=== PATIENT | female | born 1950 | race African-American/Black ===

== ENCOUNTER 2025-07-24 14:50 | Outpatient (AMB) | payer MEDICARE, OTHER, SELFPAY ==
--- OUTSIDE RECORDS SUMMARY | 2024-12-10 09:00 | XMS_ITS ---
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 Name Role Phone Linda Vogel Unavailable [phone] REASON FOR VISIT labs Medications Medication SIG (Take, Route, Frequency, Duration) Notes Start Date End Date Status Lisinopril 40 MG Tablet TAKE 1 TABLET BY MOUTH EVERY DAY; Duration: 90 Active Hydrocortisone 2.5 % Cream 1 APPLICATION EXTERNALLY TWICE A DAY 30 DAYS; Duration: 30 Active Albuterol Sulfate HFA 108 (90 Base) MCG/ACT Aerosol Solution INHALE 1 PUFF INTO THE LUNGS EVERY 4 HOURS FOR 30 DAYS; Duration: 30 Active Multi For Her 50+ - Tablet as directed Orally Active oxyCODONE-Acetaminophen 5-325 MG Tablet 1 tablet as needed Orally every 6 hrs; Duration: 30 days 11/18/2024 Active Vitamin D 50 MCG (2000 UT) Tablet TAKE 1 TABLET BY MOUTH EVERY DAY; Duration: 90 Active Docusate Sodium 100 MG Capsule 1 capsule Orally twice a day; Duration: 90 days 06/01/2022 Active Digoxin 125 MCG Tablet TAKE 1 TABLET BY MOUTH EVERY DAY; Duration: 90 Active Pantoprazole Sodium 40 MG Tablet Delayed Release TAKE 1 TABLET BY MOUTH EVERY DAY FOR 90 DAYS; Duration: 90 Not-Taking Atorvastatin Calcium 20 MG Tablet TAKE 1 TABLET BY MOUTH EVERY DAY; Duration: 90 Active Montelukast Sodium 10 MG Tablet TAKE 1 TABLET BY MOUTH EVERY DAY FOR 30 DAYS; Duration: 90 Active Warfarin Sodium 4 MG Tablet TAKE 1 TABLET BY MOUTH EVERY DAY; Duration: 90 Active Metoprolol Succinate ER 50 MG Tablet Extended Release 24 Hour 1 tablet Orally Once a day; Duration: 90 days Active Torsemide 20 MG Tablet TAKE 1 TABLET BY MOUTH TWICE A DAY FOR 90 DAYS; Duration: 90 Active Allopurinol 100 MG Tablet TAKE 2 TABLETS BY MOUTH ONCE DAILY; Duration: 90 Active Colchicine 0.6 MG Tablet 1 tablet Orally Twice a day; Duration: 30 days as needed 04/30/2023 Active Fluticasone Propionate 50 MCG/ACT Suspension SPRAY 2 SPRAYS INTO EACH NOSTRIL ONCE A DAY; Duration: 90 Active levETIRAcetam 1000 MG Tablet TAKE 1 TABLET BY MOUTH TWICE A DAY; Duration: 90 Active Encounters Encounter Location Date Provider Diagnosis [facility] [address] [place] [phone] 12/10/2024 Linda Lela Plan Of Treatment Next Appt Details Provider Name:Linda Lela, 0 09/02/2025 01:00:00 PM, [address] [place] [address], [phone], Provider Name:Linda Lela, 0 02/24/2026 01:00:00 PM, [address] [place] [address], [phone], Progress Notes * JESSICA LALDOB: [birth year] (75 yo F)Acc No.[id number]:12/10/2024 Progress Note Patient: JESSICA BOWMAN Provider: Susan Vogel PA-C :1950 A ge:74 Y S ex:Female Date:12/10/2024 Address:[address] [place], [place] [id number] Subjective: * Chief Complaints: * L abs * Medications: Sharon Senia For Her 50+ - Tablet as directed Orally Albuterol Sulfate HFA 108 (90 Base) MCG/ACT Aerosol Solution INHALE 1 PUFF INTO THE LUNGS EVERY 4 HOURS FOR 30 DAYS levETIRAcetam 1000 MG Tablet TAKE 1 TABLET BY MOUTH TWICE A DAY Fluticasone Propionate 50 MCG/ACT Suspension SPRAY 2 SPRAYS INTO EACH NOSTRIL ONCE A DAY Colchicine 0.6 MG Tablet 1 tablet Orally Twice a day , Notes to Pharmacist: as neededMontelukast Sodium 10 MG Tablet TAKE 1 TABLET BY MOUTH EVERY DAY FOR 30 DAYS Allopurinol 100 MG Tablet TAKE 2 TABLETS BY MOUTH ONCE DAILY Torsemide 20 MG Tablet TAKE 1 TABLET BY MOUTH TWICE A DAY FOR 90 DAYS Metoprolol Succinate ER 50 MG Tablet Extended Release 24 Hour 1 tablet Orally Once a day Warfarin Sodium 4 MG Tablet TAKE 1 TABLET BY MOUTH EVERY DAY Atorvastatin Calcium 20 MG Tablet TAKE 1 TABLET BY MOUTH EVERY DAY Digoxin 125 MCG Tablet TAKE 1 TABLET BY MOUTH EVERY DAY Docusate Sodium 100 MG Capsule 1 capsule Orally twice a day Vitamin D 50 MCG (1999 UT) Tablet TAKE 1 TABLET BY MOUTH EVERY DAY Hydrocortisone 2.5 % Cream 1 APPLICATION EXTERNALLY TWICE A DAY 30 DAYS Lisinopril 40 MG Tablet TAKE 1 TABLET BY MOUTH EVERY DAY oxyCODONE-Acetaminophen 5-325 MG Tablet 1 tablet as needed Orally every 6 hrs Taking Multi For Her 50+ - Tablet as directed Orally Taking Albuterol Sulfate HFA 108 (90 Base) MCG/ACT Aerosol Solution INHALE 1 PUFF INTO THE LUNGS EVERY 4 HOURS FOR 30 DAYS Taking levETIRAcetam 1000 MG Tablet TAKE 1 TABLET BY MOUTH TWICE A DAY Taking Fluticasone Propionate 50 MCG/ACT Suspension SPRAY 2 SPRAYS INTO EACH NOSTRIL ONCE A DAY Taking Colchicine 0.6 MG Tablet 1 tablet Orally Twice a day , Notes to Pharmacist: as neededTaking Montelukast Sodium 10 MG Tablet TAKE 1 TABLET BY MOUTH EVERY DAY FOR 30 DAYS Taking Allopurinol 100 MG Tablet TAKE 2 TABLETS BY MOUTH ONCE DAILY Taking Torsemide 20 MG Tablet TAKE 1 TABLET BY MOUTH TWICE A DAY FOR 90 DAYS Taking Metoprolol Succinate ER 50 MG Tablet Extended Release 24 Hour 1 tablet Orally Once a day Taking Warfarin Sodium 4 MG Tablet TAKE 1 TABLET BY MOUTH EVERY DAY Taking Atorvastatin Calcium 20 MG Tablet TAKE 1 TABLET BY MOUTH EVERY DAY Taking Digoxin 125 MCG Tablet TAKE 1 TABLET BY MOUTH EVERY DAY Taking Docusate Sodium 100 MG Capsule 1 capsule Orally twice a day Taking Vitamin D 50 MCG (1999 UT) Tablet TAKE 1 TABLET BY MOUTH EVERY DAY Taking Hydrocortisone 2.5 % Cream 1 APPLICATION EXTERNALLY TWICE A DAY 30 DAYS Taking Lisinopril 40 MG Tablet TAKE 1 TABLET BY MOUTH EVERY DAY Taking oxyCODONE-Acetaminophen 5-325 MG Tablet 1 tablet as needed Orally every 6 hrs Not-TakingPantoprazole Sodium 40 MG Tablet Delayed Release TAKE 1 TABLET BY MOUTH EVERY DAY FOR 90 DAYS Not-Taking Pantoprazole Sodium 40 MG Tablet Delayed Release TAKE 1 TABLET BY MOUTH EVERY DAY FOR 90 DAYS Care Plan Details* * Electronic signature of Linda Vogel PA-C on 07/24/2025 at 02:53 PM EST Sign off status: Pending * Provider: Susan Vogel PA-C Date: 0 12/10/2024 Generated for Rochelle lyons/Dante/Dario on: 1 09/24/2024 02:53 PM EST
--- OUTSIDE RECORDS SUMMARY | 2025-01-06 05:15 | XMS_ITS ---
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 Role Phone Linda Vogel Unavailable [phone] Medications Medication SIG (Take, Route, Frequency, Duration) Notes Start Date End Date Status Lisinopril 40 MG Tablet TAKE 1 TABLET BY MOUTH EVERY DAY; Duration: 90 Active oxyCODONE-Acetaminophe n 5-325 MG Tablet 1 tablet as needed Orally every 6 hrs; Duration: 30 days Partial Fill upon Patient Request 12/18/2024 Active Digoxin 125 MCG Tablet TAKE 1 TABLET BY MOUTH EVERY DAY; Duration: 90 Active Vitamin D 50 MCG (1999) Tablet TAKE 1 TABLET BY MOUTH EVERY DAY; Duration: 90 Active Hydrocortisone 2.5 % Cream 1 APPLICATION EXTERNALLY TWICE A DAY 30 DAYS; Duration: 30 Active Metoprolol Succinate ER 50 MG Tablet Extended Release 24 Hour 1 tablet Orally Once a day; Duration: 90 days Active Warfarin Sodium 4 MG Tablet TAKE 1 TABLET BY MOUTH EVERY DAY; Duration: 90 Active Atorvastatin Calcium 20 MG Tablet TAKE 1 TABLET BY MOUTH EVERY DAY; Duration: 90 Active Pantoprazole Sodium 40 MG Tablet Delayed Release TAKE 1 TABLET BY MOUTH EVERY DAY FOR 90 DAYS; Duration: 90 Not-Taking Docusate Sodium 100 MG Capsule 1 capsule Orally twice a day; Duration: 90 days 06/01/2022 Active Torsemide 20 MG Tablet TAKE 1 TABLET BY MOUTH TWICE A DAY FOR 90 DAYS; Duration: 90 Active Allopurinol 100 MG Tablet TAKE 2 TABLETS BY MOUTH ONCE DAILY; Duration: 90 Active Colchicine 0.6 MG Tablet 1 tablet Orally Twice a day; Duration: 30 days as needed 04/30/2023 Active Montelukast Sodium 10 MG Tablet TAKE 1 TABLET BY MOUTH EVERY DAY FOR 30 DAYS; Duration: 90 Active Fluticasone Propionate 50 MCG/ACT Suspension SPRAY 2 SPRAYS INTO EACH NOSTRIL ONCE A DAY; Duration: 90 Active Multi For Her 50+ - Tablet as directed Orally Active Albuterol Sulfate HFA 108 (90 Base) MCG/ACT Aerosol Solution INHALE 1 PUFF INTO THE LUNGS EVERY 4 HOURS FOR 30 DAYS; Duration: 30 Active levETIRAcetam 1000 MG Tablet TAKE 1 TABLET BY MOUTH TWICE A DAY; Duration: 90 Active Encounters Encounter Location Date Provider Diagnosis [facility] [address] [phone] 01/06/2025 Linda Lela Plan Of Treatment Next Appt Details Provider Name:Linda Lela, 0 09/02/2025 01:00:00 PM, [address] [place] [address], [phone], Provider Name:Linda Lela, 0 02/24/2026 01:00:00 PM, [address] [place] [address], [phone], Progress Notes * JESSICA LALDOB: [birth year] (75 yo F)Acc No.[id number]:01/06/2025 Progress Note Patient: JESSICA BOWMAN Provider: Susan Vogel PA-C :1950 A ge:74 Y S ex:Female Date:01/06/2025 Address:[address] [place], [place] [id number] Subjective: * Chief Complaints: * Medications: T akingMulti For Her 50+ - Tablet as directed [...] tablet as needed Orally every 6 hrs , Notes to Pharmacist: Partial Fill upon Patient RequestDigoxin 125 MCG Tablet TAKE 1 TABLET BY MOUTH EVERY DAY Taking Multi For Her 50+ - Tablet [...] tablet as needed Orally every 6 hrs , Notes to Pharmacist: Partial Fill upon Patient RequestTaking Digoxin 125 MCG Tablet TAKE 1 TABLET BY MOUTH EVERY DAY Not-TakingPantoprazole Sodium 40 MG Tablet Delayed Release TAKE 1 TABLET BY MOUTH EVERY DAY FOR 90 DAYS Not-Taking Pantoprazole Sodium 40 MG Tablet Delayed Release TAKE 1 TABLET BY MOUTH EVERY DAY FOR 90 DAYS Care Plan Details* * Electronic signature of Linda Vogel PA-C on 07/24/2025 at 02:53 PM EST Sign off status: Pending * Provider: Susan Vogel PA-C Date: 0 01/06/2025 Generated for Rochelle lyons/Dante/Dario on: 1 09/24/2024 02:53 PM EST
[2025-07-24 14:48] VITALS: BP 139/100; PULSE 72; O2SAT 91; BMI 32.7
--- NOTE | 2025-07-24 14:48 | HO.NEPHOV_ITS ---
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 She is 75 of age who has longstanding hypertension and is on multiple anti hypertensive medications including ACEI. She has H/O DM but denies CAD, CHF, PAD or TOM. She is not on any oral hypoglycemic agents. She has H/O MVR and is on warfarin. She has no H/O hypercalcemia, bone pain, H/O excessive NSAID's, epistaxis, photosensitvity, SOB, PND, orthopnea or edema. She denies any orthostatic symptoms. Her serum creatinine has gone up from baseline. She did not have any specific complaints at the time of this office visit. [facility] Medical History (Updated 07/25/25 @ 12:16 by Jose Guadalupe Fontenot MD) Atrial fibrillation Arthritis Osteoporosis Obesity Hypertension Diabetes mellitus Depression Congestive heart failure Surgical History H/O brain surgery History of colonoscopy H/O mitral valve replacement Family History Son Lung cancer Paternal Grandmother Diabetes mellitus Review of Systems Const All systems reviewed & are unremarkable except as noted in HPI and below Physical Exam Vital Signs: Last Vital Signs Pulse 72 07/24/25 14:48 BP 139/100 H 07/24/25 14:48 Pulse Ox 91 L 07/24/25 14:48 Oxygen Delivery Method Room Air 07/24/25 14:48 BMI result Body Mass Index 32.7 Const General: comfortable and no acute distress Orientation/consciousness: patient oriented x3 HEENT Head: Yes normocephalic Mouth: Normal oral and palatal mucosa present Eyes EOM: EOMs intact bilaterally Neck Neck: Yes supple Resp Auscultation: clear to auscultation bilaterally Cardio Jugular venous distension: no JVD Rate: regular rate Heart sounds: Murmur heart sound present GI Palpation (GI): Soft to palpation Auscultation: normal bowel sounds General: Yes no CVA tenderness Back/Spine/Pelvis Back: no CVA tenderness Skin General skin exam: no rashes or lesions noted Neuro General: patient oriented x3 and moves all extremities Extrem General: Yes no pedal edema Assessment & Plan Assessment & Plan (1) Hypertension: Code(s): I10 - Essential (primary) hypertension Category: Medical Qualifiers: Hypertension type: primary hypertension Qualified Code(s): I10 - Essential (primary) hypertension (2) CKD stage 3a, GFR 45-59 ml/min: Code(s): N18.31 - Chronic kidney disease, stage 3a Category: Medical Plan Ms Nieves has CKD at baseline most likely from long standing hypertension. Her renal functions had been fairly stable until this year when her serum creatinine started going up but stable now. She may be having elvi vascular disease. I plan to get Doppler of renal arteries after reviewing the initial work up. She should maintain good hydration and minimize NSAID's. I am considering backing off on ACEI dosage to see whether her serum creatinine will improve. All these have been explained in detail. Answered all questions and F/U was given Orders: Orders Proteinase 3 PR3 Antibodies 3 Weeks I10 - Essential (primary) hypertension, N18.31 - Chronic kidney disease, stage 3a Complement C3 3 Weeks I10 - Essential (primary) hypertension, N18.31 - Chronic kidney disease, stage 3a Immunofixation Pnl, Serum 3 Weeks I10 - Essential (primary) hypertension, N18.31 - Chronic kidney disease, stage 3a Hepatitis B Core Antibody 3 Weeks I10 - Essential (primary) hypertension, N18.31 - Chronic kidney disease, stage 3a Electrolytes 3 Weeks I10 - Essential (primary) hypertension, N18.31 - Chronic kidney disease, stage 3a Calcium 3 Weeks I10 - Essential (primary) hypertension, N18.31 - Chronic kidney disease, stage 3a Creatinine 3 Weeks I10 - Essential (primary) hypertension, N18.31 - Chronic kidney disease, stage 3a Protein Creatinine Ratio, Ur 3 Weeks I10 - Essential (primary) hypertension, N18.31 - Chronic kidney disease, stage 3a Immunofixation, Random Urine 3 Weeks I10 - Essential (primary) hypertension, N18.31 - Chronic kidney disease, stage 3a Hemoglobin A1c 3 Weeks I10 - Essential (primary) hypertension, N18.31 - Chronic kidney disease, stage 3a Anti DNA DS Antibody 3 Weeks I10 - Essential (primary) hypertension, N18.31 - Chronic kidney disease, stage 3a Myeloperoxidase Antibody 3 Weeks I10 - Essential (primary) hypertension, N18.31 - Chronic kidney disease, stage 3a Anti Glomerular Basement Memb 3 Weeks I10 - Essential (primary) hypertension, N18.31 - Chronic kidney disease, stage 3a Complement C4 3 Weeks I10 - Essential (primary) hypertension, N18.31 - Chronic kidney disease, stage 3a Phospholipase A2 Receptor Pnl 3 Weeks I10 - Essential (primary) hypertension, N18.31 - Chronic kidney disease, stage 3a Hepatitis B Surface Antigen 3 Weeks I10 - Essential (primary) hypertension, N18.31 - Chronic kidney disease, stage 3a Blood Urea Nitrogen 3 Weeks I10 - Essential (primary) hypertension, N18.31 - Chronic kidney disease, stage 3a Uric Acid 3 Weeks I10 - Essential (primary) hypertension, N18.31 - Chronic kidney disease, stage 3a Coding Level of Care Code Est Pt Level 4 (59606) Diagnoses Primary hypertension I10 Hypertension type: primary hypertension CKD stage 3a, GFR 45-59 ml/min N18.
--- OUTSIDE RECORDS SUMMARY | 2025-07-24 14:53 | XMS_ITS ---
Author Name [facility] Organization Unknown Encounters Encounter Type Encounter Reason Primary Diagnosis Location Date Ambulatory [facility] 05/27/2024 Care Team Organization Name Specialty Phone Email Start Date End [facility]24 [facility] 12/04/2022
--- OUTSIDE RECORDS SUMMARY | 2025-07-24 14:53 | XMS_ITS | Patient Health Record ---
Author Organization [facility] [address] Address [address] [place] [address] Care Team Providers Care [employer] Manager Name Role Phone Linda Vogel Unavailable [phone] TERESA MARTIN Unavailable [phone] JOSE ANGELISAIAS WILKERSON Unavailable [phone] [place], [place] Unavailable [phone] Allergies Allergen (clinical drug ingredient) Drug/Non Drug Allergy documented on EMR Reaction Allergy Type Onset Date Status amlodipine Amlodipine Besylate Unknown Drug Allergy Active amoxicillin / clavulanate Augmentin Unknown Drug Allergy Active hydrochlorothiazide Hydrochlorothiazide Unknown Drug Aller gy Active Results Component Value Reference Range Flag Notes VITAMIN B12 Reviewed date:04/07/2025 08:00:36 AM Interpretation: Performing Lab: Notes/Report: Vitamin B-12 509 250-900 pcg/mL THYROID STIMULATING HORMONE WITH REFLEX TO FREE T4 AND FREE T3 Reviewed date:04/07/2025 08:00:47 AM Interpretation: Performing Lab: Notes/Report: TSH 2.80 0.40-4.00 mcIU/mL URINALYSIS WITH REFLEX MICRO SCOPIC AND CULTURE Reviewed date:04/08/2025 01:15:41 PM Interpretation: Performing Lab: Notes/Report: Specific [place] Urine 1.020 1.003-1.030 pH, Urine 6.0 5.0-8.0 pH Leukocytes, Urine Negative Negative Nitrite, Urine Negative Negative Protein, Urine 100 <=Trace mg/dL A Glucose, Urine Negative Negative mg/dL Ketones, Urine Negative Negative mg/dL Urobilinogen, Urine 0.2 0.2-1.0 mg/dL Bilirubin, Urine Negative Negative Blood, Urine Negative Negative RBC, Urine 3.2 0-4 /HPF WBC, Urine 10.0 0-4 /HPF H Squamous Epithelial, Urine >100 0-60 /LPF H Bacteria, Urine Few Negative /HPF A Hyaline Casts, Urine 2.0 0-3 /LPF PROTHROMBIN TIME WITH INR Reviewed date:04/06/2025 04:10:19 PM Interpretation: Performing Lab: Notes/Report: Protime 64.3 10.6-13.9 sec H INR 5.3 HH URINALYSIS WITH REFLEX MICRO SCOPIC Reviewed date:05/21/2025 04:12:19 PM Interpretation: Performing Lab: Notes/Report: Specific [place] Urine 1.012 1.003-1.030 pH, Urine 7.0 5.0-8.0 pH Leukocytes, Urine Negative Negative Nitrite, Urine Negative Negative Protein, Urine 300 <=Trace mg/dL A Glucose, Urine Negative Negative mg/dL Ketones, Urine Negative Negative mg/dL Urobilinogen, Urine 1.0 0.2-1.0 mg/dL Bilirubin, Urine Negative Negative Blood, Urine Negative Negative RBC, Urine 6.1 0-4 /HPF H WBC, Urine 2.5 0-4 /HPF Squamous Epithelial, Urine 91 0-60 /LPF H Bacteria, Urine Negative Negative /HPF Hyaline Casts, Urine 0.4 0-3 /LPF CBC WITH AUTO DIFFERENTIAL Reviewed date:05/27/2025 10:10:28 PM Interpretation: Performing Lab: Notes/Report: WBC 4.4 4.8-10.8 K/mcL L RBC 4.70 3.80-4.80 M/mcL Hemoglobin 12.3 11.5-16.0 g/dL Hematocrit 41.4 35.0-47.0 % MCV 88.3 79.0-98.0 FL MCH 26.2 27.0-32.0 pcg L MCHC 29.7 32.0-37.0 g/dL L RDW 13.7 11.0-15.0 % Platelets 100 130-400 K/mcL L MPV 11.8 7.0-11.0 FL H NRBC 0.0 <1.0 % NRBC Absolute 0.00 <0.10 K/mcL Neutrophils Relative 61.0 Lymphocytes Relative 19.5 Monocytes Relative 17.2 Eosinophils Relative 0.9 Basophils Relative 0.9 Immature Granulocytes Relative 0.5 Neutrophils Absolute 2.65 1.50-7.00 K/mcL Lymphocytes Absolute 0.85 1.00-5.00 K/mcL L Monocytes Absolute 0.75 0.20-1.00 K/mcL Eosinophils Absolute 0.04 0.00-0.50 K/mcL Basophils Absolute 0.04 0.00-0.20 K/mcL Immature Granulocytes Absolute 0.02 0.00-0.03 K/mcL URIC ACID Reviewed date:05/21/2025 07:44:04 AM Interpretation: Performing Lab: Notes/Report: Uric Acid 10.5 3.1-7.8 mg/dL H URIC ACID Reviewed date:04/08/2025 01:15:32 PM Interpretation: Performing Lab: Notes/Report: Uric Acid 10.2 3.1-7.8 mg/dL H HEMOGLOBIN A1C Reviewed date:04/06/2025 04:10:04 PM Interpretation: Performing Lab: Notes/Report: Hemoglobin A1C 6.1 <6.5 % Mean Bld Glu Estim. 128 PROTHROMBIN TIME WITH INR Reviewed date:04/22/2025 08:09:35 AM Interpretation: Performing Lab: Notes/Report: Protime 38.0 10.6-13.9 sec H INR 3.1 PROTHROMBIN TIME WITH INR Reviewed date:05/21/2025 04:29:52 PM Interpretation: Performing Lab: Notes/Report: Protime 38.1 10.6-13.9 sec H INR 3.1 COMPREHENSIVE METABOLIC PANE L Reviewed date:05/27/2025 10:10:22 PM Interpretation: Performing Lab: Notes/Report: Sodium 138 133-145 mmol/L Potassium 4.3 3.5-5.5 mmol/L Chloride 98 96-110 mmol/L CO2 32 21-32 mmol/L Anion Gap 8 3-11 Glucose 69 70-100 mg/dL L BUN 18 5-25 mg/dL Creatinine 1.62 0.50-1.10 mg/dL H eGFR 34 >=60 mL/min/1.73m2 L Calcul ation based on the Chronic Kidney Disease Epidemiology Collaboration (CKD-EPI) equation refit without adjustment for race. BUN/Creatinine Ratio 11.1 Calcium 9.1 8.5-10.5 mg/dL AST (SGOT) 40 10-42 unit/L ALT (SGPT) 21 10-60 unit/L Alkaline Phosphatase 142 42-121 unit/L H Total Protein 8.1 6.0-8.0 g/dL H Albumin 3.8 3.2-5.0 g/dL Total Bilirubin 1.8 0.0-1.4 mg/dL H COMPREHENSIVE METABOLIC PANE L Reviewed date:04/08/2025 01:15:22 PM Interpretation: Performing Lab: Notes/Report: Sodium 136 133-145 mmol/L Potassium 4.4 3.5-5.5 mmol/L Chloride 99 96-110 mmol/L CO2 33 21-32 mmol/L H Anion Gap 4 3-11 Glucose 89 70-100 mg/dL BUN 17 5-25 mg/dL Creatinine 1.64 0.50-1.10 mg/dL H eGFR 33 >=60 mL/min/1.73m2 L Calcul ation based on the Chronic Kidney Disease Epidemiology Collaboration (CKD-EPI) equation refit without adjustment for race. BUN/Creatinine Ratio 10.4 Calcium 8.7 8.5-10.5 mg/dL AST (SGOT) 39 10-42 unit/L ALT (SGPT) 18 10-60 unit/L Alkaline Phosphatase 141 42-121 unit/L H Total Protein 7.6 6.0-8.0 g/dL Albumin 3.5 3.2-5.0 g/dL Total Bilirubin 1.1 0.0-1.4 mg/dL LIPID PANEL WITH REFLEX TO D IRECT LDL Reviewed date:04/08/2025 01:10:40 PM Interpretation: Performing Lab: Notes/Report: Cholesterol 84 0-200 mg/dL Triglycerides 83 0-150 mg/dL HDL 38 >=40 mg/dL L LDL Calculated 29 0-100 mg/dL Estimated LDL Calculated using equation: Total cholesterol - HDL cholesterol - (Triglycerides/5) VLDL Cholesterol Brien 16.6 Non HDL Chol. (LDL+VLDL) 46 <145 mg/dL Chol/HDL Ratio 2.2 0.0-4.4 CBC WITH AUTO DIFFERENTIAL Reviewed date:04/08/2025 01:15:50 PM Interpretation: Performing Lab: Notes/Report: WBC 3.5 4.8-10.8 K/mcL L RBC 4.50 3.80-4.80 M/mcL Hemoglobin 12.0 11.5-16.0 g/dL Hematocrit 40.7 35.0-47.0 % MCV 89.8 79.0-98.0 FL MCH 26.5 27.0-32.0 pcg L MCHC 29.5 32.0-37.0 g/dL L RDW 13.9 11.0-15.0 % Platelets 113 130-400 K/mcL L MPV 9.8 7.0-11.0 FL NRBC 0.0 <1.0 % NRBC Absolute 0.00 <0.10 K/mcL Neutrophils Relative 57.5 Lymphocytes Relative 23.6 Monocytes Relative 15.4 Eosinophils Relative 2.3 Basophils Relative 0.9 Immature Granulocytes Relative 0.3 Neutrophils Absolute 2.02 1.50-7.00 K/mcL Lymphocytes Absolute 0.83 1.00-5.00 K/mcL L Monocytes Absolute 0.54 0.20-1.00 K/mcL Eosinophils Absolute 0.08 0.00-0.50 K/mcL Basophils Absolute 0.03 0.00-0.20 K/mcL Immature Granulocytes Absolute 0.01 0.00-0.03 K/mcL Reason For Referral Reason [facility] Neurology Diagnosis 1 History of subdural hematoma (Z86.79) Diagnosis 2 History of seizures (Z87.898) Referral Organization [facility] [address] Referring Provider First Name Linda Referring Provider Last Name [facility] Referring Provider [facility] Referred Provider Specialty Neurology General Notes Angela Rush 02:11:12 PM > Pt given referral faxed to Referral Priority Routine Reason Low platelet count. Diagnosis 1 Thrombocytopenia (D6 9.6) Referral Organization [facility] [address] Referring Provider First Name Linda Referring Provider Last Name [facility] Referring Provider [facility] edicine Referred Provider Specialty Hematology General Notes Yane Siddiqui 11/2024 02:53:59 PM >Faxed referral to [facility] fax# [phone] Referral Priority Routine Reason Worsening kidney fun ction Diagnosis 1 Chronic kidney disea se, stage 3a (N18.31) Referral Organization [facility] [address] Referring Provider First Name Linda [facility]erring [facility] edicine Referred Provider Specialty Nephrology General Notes Yane Siddiqui 11/2024 02:51:50 PM >Faxed referral to [facility] fax# [phone] Clinical Notes Sakina López 06/30 12:03:34 PM EST > refaxed referral with attached office notes and recent labs. pt is scheduled for this sunday. Referral Priority Routine Medications Medication SIG (Take, Route, Frequency, Duration) Notes Start Date End Date Status oxyCODONE-Acetaminophen 5-325 MG Tablet 1 tablet as needed Orally every 6 hrs; Duration: 30 days Partial Fill upon Patient Request 07/09/2025 Active Doxycycline Hyclate 100 MG Tablet 1 tablet Orally twice a day; Duration: 7 days 07/07/2025 Active Vitamin D 50 MCG (2000 UT) Tablet TAKE 1 TABLET BY MOUTH EVERY DAY; Duration: 90 Active Hydrocortisone 2.5 % Cream 1 APPLICATION EXTERNALLY TWICE A DAY 30 DAYS; Duration: 30 Active Lisinopril 40 MG Tablet TAKE 1 TABLET BY MOUTH EVERY DAY; Duration: 90 Active Docusate Sodium 100 MG Capsule TAKE 1 CAPSULE BY MOUTH TWICE A DAY FOR 90 DAYS; Duration: 90 Active Atorvastatin Calcium 20 MG Tablet TAKE 1 TABLET BY MOUTH EVERY DAY; Duration: 90 Active Metoprolol Succinate ER 50 MG Tablet Extended Release 24 Hour TAKE 1 TABLET BY MOUTH EVERY DAY FOR 90 DAYS; Duration: 90 Active Multi For Her 50+ - Tablet as directed Orally Active levETIRAcetam 1000 MG Tablet TAKE 1 TABLET BY MOUTH TWICE A DAY; Duration: 90 days Active Albuterol Sulfate HFA 108 (90 Base) MCG/ACT Aerosol Solution INHALE 1 PUFF INTO THE LUNGS EVERY 4 HOURS FOR 30 DAYS; Duration: 30 Active Warfarin Sodium 4 MG Tablet TAKE 1 TABLET BY MOUTH EVERY DAY; Duration: 90 Active Fluticasone Propionate 50 MCG/ACT Suspension SPRAY 2 SPRAYS INTO EACH NOSTRIL ONCE A DAY; Duration: 90 Active Digoxin 125 MCG Tablet TAKE 1 TABLET BY MOUTH EVERY DAY; Duration: 90 Active Torsemide 20 MG Tablet TAKE 1 TABLET BY MOUTH TWICE A DAY FOR 90 DAYS; Duration: 90 Active Azithromycin 250 MG Tablet 2 tablets for day 1, followed by 1 tablet day 2-5 Orally daily; Duration: 5 days 07/07/2025 Active Immunizations Vaccine Route Administration Date Status Comme nts Flu vaccine no Preserv 3 and > IM Intramuscular 06/04/2018 Administered Flu vaccine no Preserv 3 and > IM Intramuscular 07/02/2023 Administered influenza IM Intramuscular 04/30/2020 Administered influenza IM Intramuscular 04/15/2021 Administered influenza IM Intramuscular 05/01/2022 Administered Influenza, seasonal, injectable, preservative free, 3 yrs and above IM Intramuscular 06/10/2019 Administered prevnar 13 IM Intramuscular 03/13/2018 Administered RSV-IGIV IM Intramuscular 07/02/2023 Administered SHINGRIX IM Intramuscular 03/13/2018 Administered SHINGRIX IM Intramuscular 01/15/2019 Administered Social History Tobacco Use: Social History Observation Description Date Details (start date - stop date) Current Smoker NA - NA Social History Drugs/Alcohol: Social Info Question Answer Notes Drugs Have you used drugs other than those for medical reasons in the past 12 months? No Tobacco Use: Social Info Question Answer Notes Tobacco Use/Smoking Are you a current smoker Additional Details Category Social Info Options Details Drugs/Alcohol: Do you smoke marijuana? De nies Do you drink alcohol? No Section Notes: vapes nicotine daily vapes nicotine daily vapes nicotine daily vapes nicotine daily No alcohol use No rec drug use vapes nicotine daily No alcohol use No rec drug use vapes nicotine daily No alcohol use No rec drug use vapes nicotine daily vapes nicotine daily vapes nicotine daily vapes nicotine daily No alcohol use No rec drug use vapes nicotine daily vapes nicotine daily vapes nicotine daily vapes nicotine daily vapes nicotine daily vapes nicotine daily Problems Problem Type SNOMED Code ICD Code Onset Dates Problem Status W/U Status Risk Notes Problem Coagulation disorder (00549331) Coagulation defect, unspecified (D68.9) Active confirmed Problem Disorder due to type 2 diabetes mellitus (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) Type 2 diabetes mellitus with unspecified complications (E11.8) Active confirmed Problem Lipoprotein deficiency disorder (089603108) Lipoprotein deficiency (E78.6) Active confirmed Problem Major depression, single episode (73509384) Major depressive disorder, single episode, unspecified (F32.9) Active confirmed Problem Chronic pain syndrom e (020621031) Chronic pain syndrome (G89.4) Active confirmed Problem Essential hypertension (91713508) Essential (primary) hypertension (I10) Active confirmed Problem Paroxysmal atrial fibrillation (314494689) Paroxysmal atrial fibrillation (I48.0) Active confirmed Problem Atrial fibrillation (64253475) Unspecified atrial fibrillation (I48.91) Active confirmed Problem Heart failure (51534207) Heart failure, unspecified (I50.9) Active confirmed Problem Mucopurulent chronic bronchitis (33526338) Mucopurulent chronic bronchitis (J41.1) Active confirmed Problem Chronic obstructive pulmonary disease (65703486) Chronic obstructive pulmonary disease, unspecified (J44.9) Active confirmed Problem Uqohe-wc-jtoorsr hypoxemic respiratory failure (47491191874565002) Acute and chronic respiratory failure with hypoxia (J96.21) Active confirmed Problem Ulcer of thigh (622127630) Non-pressure chronic ulcer of unspecified thigh limited to breakdown of skin (L97.101) Active confirmed Problem Primary gout (13343290) Idiopathic gout, multiple sites (M10.09) Active confirmed Problem Osteoarthritis (594066732) Unspecified osteoarthritis, unspecified site (M19.90) Active confirmed Problem Complete uterovagina l prolapse (70560588) Complete uterovaginal prolapse (N81.3) Active confirmed Problem Dysphasia (46408910) Dysphasia (R47.02) Active confirmed Problem Seizure (84302497) Unspecified convulsions (R56.9) Active confirmed Problem Adult health examination (922665051) Encounter for general adult medical examination without abnormal findings (Z00.00) Active confirmed Problem History of heart valve repair with prosthesis (951798182378583) Presence of prosthetic heart valve (Z95.2) Active confirmed Problem Pure hypercholesterolemia (846972776) Pure hypercholesterolemia, unspecified (E78.00) Active confirmed Problem Unsteady gait (12241912) Unsteady gait (R26.81) Active confirmed Problem Backache (616304822) Back pain, unspecified back location, unspecified back pain laterality, unspecified chronicity (M54.9) Active confirmed Problem Hyperlipoproteinemia (6313321) Acquired hyperlipoproteinemia (E78.5) Active confirmed Problem Atrial fibrillation (41238880) Atrial fibrillation, unspecified type (I48.91) Active confirmed Problem Memory loss (16752414) Memory loss (R41.3) Active confirmed Problem Gastroduodenitis (961986312) Gastritis, presence of bleeding unspecified, unspecified chronicity, unspecified gastritis type (K29.70) Active confirmed Problem Seasonal allergy (420806752) Seasonal allergies (J30.2) Active confirmed Problem Vitamin D deficiency (48130783) Vitamin D deficiency (E55.9) Active confirmed Problem Pain in right foot (985293117393920) Right foot pain (M79.671) Active confirmed Problem Diabetes mellitus screening (278600601) Diabetes mellitus screening (Z13.1) Active confirmed Problem Body mass index 40+ - morbidly obese (384512928) BMI 40.0-44.9, adult (Z68.41) Active confirmed Problem Use of anticoagulation (636205416) Chronic anticoagulation (Z79.01) Active confirmed Problem Type II diabetes mellitus without complication (995737023) Type 2 diabetes mellitus without complication, without long-term current use of insulin (E11.9) Active confirmed Problem Chronic kidney disease stage 3A (disorder) (558120550) Chronic kidney disease, stage 3a (N18.31) Active confirmed Problem Gastroesophageal reflux disease with esophagitis (disorder) (531017246) Gastroesophageal reflux disease with esophagitis without hemorrhage (K21.00) Active confirmed Problem Disorder due to type 2 diabetes mellitus (991764990) Complication of diabetes mellitus (E11.8) Active confirmed Problem Thrombocytopenia (973516784) Thrombocytopenia (D69.6) Active confirmed Problem Pulmonary hypertension (05661839) Pulmonary hypertension (I27.20) Active confirmed Problem Idiopathic gout (69836115) Acute idiopathic gout, unspecified site (M10.00) Active confirmed Problem Diabetes mellitus screening (765551134) Screening for diabetes mellitus (Z13.1) Active confirmed Problem Increased frequency of urination (633756320) Urine frequency (R35.0) Active confirmed Problem Vitamin B>12< deficiency anaemia (33821759) Anemia due to vitamin B12 deficiency, unspecified B12 deficiency type (D51.9) Active confirmed Problem Rib pain (603151035) Rib pain (R07.81) Active c onfirmed Problem Arthritis of right knee (2445506699241196) Arthritis of knee, right (M17.11) Active confirmed Problem Specialized medical examination (05631773) Normal esophagogastroduodeno scopy (EGD) (Z01.89) Active confirmed Problem Abnormal metabolic state due to diabetes mellitus (004702822) Abnormal metabolic state due to diabetes mellitus (E11.9) Active confirmed Problem Elevated fasting lipid profile (003906230319) Elevated lipids (E78.5) Active confirmed Problem Benign essential hypertension (7658811) Benign essential hypertension (I10) Active confirmed Problem Obstructive sleep apnea syndrome (90288145) REGAN on CPAP (G47.33) Active confirmed Problem Acute worsening of stage 3 chronic kidney disease (N18.30) Active confirmed Problem Hypertension (33651649) HTN (hypertension) (I10) Active confirmed Problem Chronic kidney disease stage 3B (disorder) (791314046) CKD stage 3b, GFR 30-44 ml/min (N18.32) Active confirmed Vital Signs Heart Rate 60 /min 07/07/2025 Oximetry 90 % 07/07/2025 Blood pressure diastolic 70 mm Hg 07/07/2025 Height 65 in 07/07/2025 Blood pressure systolic 122 mm Hg 07/07/2025 Weight 224.3 lbs 07/02/2025 BMI 37.32 kg/m2 07/02/2025 Encounters Encounter Location Date Provider Diagnosis [facility] [address] [address] 08/06/2024 TALAL MARTIN Heart failure, unspe cified I50.9 ; Paroxysmal atrial fibrillation I48.0 ; Unspecified osteoarthritis, unspecified site M19.90 ; Major depressive disorder, single episode, unspecified F32.9 and Chronic pain syndrome G89.4 [facility] [address] [address] 09/11/2024 Linda Vogel Atrial fibrillation, unspecified type I48.91 ; Chronic anticoagulation Z79.01 ; Type 2 diabetes mellitus without complication, without long-term current use of insulin E11.9 ; Essential (primary) hypertension I10 ; Acquired hyperlipoproteinemia E78.5 ; Heart failure, unspecified I50.9 ; Presence of prosthetic heart valve Z95.2 and Right knee pain, unspecified chronicity M25.561 [facility] [address] [address] 02/11/2025 Linda Donncek Medicare annual well ness visit, subsequent Z00.00 ; REGAN on CPAP G47.33 ; Elevated lipids E78.5 ; Idiopathic gout, multiple sites M10.09 ; Paroxysmal atrial fibrillation I48.0 ; Breast cancer screening by mammogram Z12.31 ; Unspecified osteoarthritis, unspecified site M19.90 ; Presence of prosthetic heart valve Z95.2 ; Benign essential hypertension I10 ; Type 2 diabetes mellitus without complication, without long-term current use of insulin E11.9 ; Chronic pain syndrome G89.4 ; Hx of seizure disorder Z86.69 ; Alcohol screening Z13.39 and Encounter for screening for other disorder Z13.89 [facility] [address] [address] 05/20/2025 Linda Svrcek Peripheral neuropath ic pain M79.2 ; Pulmonary hypertension I27.20 ; Dysuria R30.0 ; CKD stage 3b, GFR 30-44 ml/min N18.32 ; Coagulation defect, unspecified D68.9 ; Idiopathic gout, multiple sites M10.09 and HTN (hypertension) I10 [facility] [address] 07/02/2025 Linda Svrcek Peripheral neuropath ic pain M79.2 ; Pulmonary hypertension I27.20 ; CKD stage 3b, GFR 30-44 ml/min N18.32 ; Coagulation defect, unspecified D68.9 ; Idiopathic gout, multiple sites M10.09 ; HTN (hypertension) I10 ; Thrombocytopenia D69.6 and Cough R05.9 [facility] [address] 07/07/2025 [place] Acute non-recurrent frontal sinusitis J01.10 ; Productive cough R05.8 ; Paroxysmal atrial fibrillation I48.0 ; Mucopurulent chronic bronchitis J41.1 and Encounter for examination of blood pressure without abnormal findings Z01.[address] [facility] [address] [place], [place] 07/31/2024 Linda Svrcek [facility] [address] [place], [place] 08/04/2024 ISAIAS VELÁSQUEZ [facility] [address] [place], [place] 08/06/2024 TERESA MARTIN [facility] [address] 08/08/2024 Linda Svrcek [facility] [address] [place] [address] 09/05/2024 Linda Svrcek [facility] [address] 09/09/2024 TALAL MARTIN [facility] [address] [place] [address] 09/09/2024 TALAL MARTIN [facility] [address] [place], [place] 09/25/2024 Linda Svrcek [facility] [address] [place] [address] 10/13/2024 Linda Svrcek [facility] [address] [place], [place] 10/28/2024 TALAL MARTIN [facility] [address] [place] [address] 11/18/2024 Linda Svrcek [facility] [address] [place] [address] 12/18/2024 Linda Svrcek [facility] [address] [place], [place] 01/05/2025 TALAL MARTIN [facility] [address] [place] [address] 01/22/2025 Linda Svrcek [facility] [address] [place], [place] 02/24/2025 Linda Svrcek [facility] [address] [place], [place] 03/31/2025 Linda Svrcek [facility] [address] [place] [address] 04/06/2025 Linda Svrcek [facility] [address] [place], [place] 04/06/2025 Linda Svrcek [facility] [address] [place], [place] 04/07/2025 Linda Svrcek [facility] [address] [place], [place] 04/08/2025 Linda Svrcek Chronic kidney disea se, stage 3a N18.[address] [facility] [address] [place] [address] 04/21/2025 Linda Svrcek Chronic anticoagulat ion Z79.[address] [facility] [address] [place] [address] 04/28/2025 Linda Svrcek [facility] [address] [place] [address] 05/04/2025 Linda Svrcek [facility] [address] [place], [place] 05/21/2025 Linda Svrcek [facility] [address] [place], [place] 05/21/2025 Linda Svrcek [facility] [address] [place] 06/02/2025 Linda Svrcek [facility] [address] [place] 06/09/2025 Linda Svrcek [facility] [address] [place] 06/09/2025 Linda Svrcek [facility] [address] [place] [address] 06/09/2025 Linda Svrcek [facility] [address] [place] [address] 06/10/2025 Linda Svrcek [facility] [address] [place] 06/11/2025 Linda Svrcek [facility] [address] [facility] [address] [place], [place] 06/18/2025 Linda Svrcek [facility] [address] 07/06/2025 Linda Svrcek [facility] [address] [facility] [address] [place], [place] 07/07/2025 [place] [facility] [address] [place] [address] 07/09/2025 Linda Svrcek Assessments Encounter Date Diagnosis (ICD Code) Assessment Notes Treatment Notes Treatment Clinical Notes Section Notes 08/06/2024 Paroxysmal atrial fibrillation (ICD-10 - I48.0) This is a medica lly complicated patient past medical history of atrial fibrillation heart failure osteoarthritis chronic pain syndrome depression with her son dying according to history. We offered support discussed chronic pain possibility of increasing the oxycodone to 10 mg twice a day and will schedule follow-up in 1 month to assess pain. She will take additional pain medicine this month to manage her pain 08/06/2024 Heart failure, unspecified (ICD-10 - I50.9) This is a medica lly complicated patient past medical history of atrial fibrillation heart failure osteoarthritis chronic pain syndrome depression with her son dying according to history. We offered support discussed chronic pain possibility of increasing the oxycodone to 10 mg twice a day and will schedule follow-up in 1 month to assess pain. She will take additional pain medicine this month to manage her pain 02/11/2025 Medicare annual wellness visit, subsequent (ICD-10 - Z00.00) #Annual physical. Discussed importance of medication compliance and regular routine follow-up. Due for updated labs. Will get updated labs today follow-up pending results. Plan to follow-up with me every 3 months. Discussed updated tetanus vaccine at the pharmacy. Will order mammogram. Unclear when last colonoscopy was however we will request records. Discussed importance of healthy diet and consistent exercise. PHQ-9 12/23. Audit . #REGAN. On CPAP. #Hyperlipidemia. On statin. Due for updated labs. #Gout. Will get updated uric acid level. Recent attack last month. #A-fib. Anticoagulated on warfarin. Managed by cardiology. Discussed importance of compliance with regular INR checks. #Osteoarthritis and chronic pain. On oxycodone. Discussed importance of follow-up in the office every 3 months. #History of seizure. History of seizure 2019 status post subdural hematoma following a fall, status post brain surgery. No seizure since. On lamotrigine. Comprehensive discussion was done on the following. 1. Nutrition: It is important to follow a healthy diet based on lots of vegetables and legumes and good fat. Avoid processed food and processed carbohydrates. Learn to prepare your own meals. Learn to read labels and avoid high fructose corn syrup, processed chemicals added to increase shelf life and preprepared meals. Avoid fast foods. Learn to eat slowly and plan meals for a week. Try to count calories and be mindful off daily calorie intake. Get into the habit of keeping an eye on your weight by using an appropriate scale. Learn to log exercise and discussed fitness Apps like [employer] which can help keep log off calories taken versus calories burned. Local food should be preferred. Discussed Dirty Dozen Versus Clean Fifteen. Discussed healthy supplements like fish oil, Tumeric, Curcumin, Melatonin, Resveratrol, Probiotics, Vitamin-D, Alpha-Lipoic acid, Vitamin-D and coconut oil. 2. It is important to exercise regularly. Is a good habit to walk at least 30-45 minutes a day. Gentle weightlifting with standard precautions to protect the back. Finding activity like cycling or hiking and get into the habit of engaging in it. Stretching before and after the exercises important. It is also important to contact me if there are any problems like shortness of breath, chest pain, back pain and joint or muscle pain associated with the exercise. 3. Discussed age appropriate screening guidelines. Colonoscopy needs to start at age 50 with stool for occult blood as appropriate. There is a new test that can test for genetic abnormalities in the stool sample. This would not replace a colonoscopy but could be used as a screening tool for patients who do not want a colonoscopy. We discussed the importance of early detection of colon cancer. 4. Discussed current guidelines with respect to breast examination, mammogram and pap smear for early detection of breast and cervical cancer. Patient advised to follow up with these appointments. 5. Discussed safe driving and no use of smart phone while driving 6. Age-appropriate immunizations were discussed. A tetanus booster is needed every 10 years. Flu vaccine is recommended every year just before the start of the flu season. Shingles vaccine is recommended after age 50 but not all insurances cover it.Pneumonia vaccine is given after age 65 unless there are certain comorbidities for which it is started earlier. 7. Diagnostic labs were discussed. These could include CBC CMP and lipids with fasting blood glucose and insulin levels. Vitamin D and hemoglobin A1c testing might be appropriate. Case discussed with collaborating physician Sharon Martin who reviewed the assessment and plan. Chart, medications, labs, vital signs reviewed. Dictation was accomplished with the use of [employer] voice recognition software, prone to medical misidentifications and grammatical errors. This is unintentional and the practitioner does try to identify and correct these, but some could still be present. Please do not hesitate to contact practitioner for clarification. All questions answered to patients satisfaction. Patient verbalized understanding of diagnosis and treatments explained. To call sooner prior to next visit it any questions/concerns arise. 02/11/2025 REGAN on CPAP (ICD-10 - G47.33) #Annual physical. Discussed importance of medication compliance and regular routine follow-up. Due for updated labs. Will get updated labs today follow-up pending results. Plan to follow-up with me every 3 months. Discussed updated tetanus vaccine at the pharmacy. Will order mammogram. Unclear when last colonoscopy was however we will request records. Discussed importance of healthy diet and consistent exercise. PHQ-9 12/23. Audit . #REGAN. On CPAP. #Hyperlipidemia. On statin. Due for updated labs. #Gout. Will get updated uric acid level. Recent attack last month. #A-fib. Anticoagulated on warfarin. Managed by cardiology. Discussed importance of compliance with regular INR checks. #Osteoarthritis and chronic pain. On oxycodone. Discussed importance of follow-up in the office every 3 months. #History of seizure. History of seizure 2019 status post subdural hematoma following a fall, status post brain surgery. No seizure since. On lamotrigine. Comprehensive discussion was done on the following. 1. Nutrition: It is important to follow a healthy diet based on lots of vegetables and legumes and good fat. Avoid processed food and processed carbohydrates. Learn to prepare your own meals. Learn to read labels and avoid high fructose corn syrup, processed chemicals added to increase shelf life and preprepared meals. Avoid fast foods. Learn to eat slowly and plan meals for a week. Try to count calories and be mindful off daily calorie intake. Get into the habit of keeping an eye on your weight by using an appropriate scale. Learn to log exercise and discussed fitness Apps like [employer] which can help keep log off calories taken versus calories burned. Local food should be preferred. Discussed Dirty Dozen Versus Clean Fifteen. Discussed healthy supplements like fish oil, Tumeric, Curcumin, Melatonin, Resveratrol, Probiotics, Vitamin-D, Alpha-Lipoic acid, Vitamin-D and coconut oil. 2. It is important to exercise regularly. Is a good habit to walk at least 30-45 minutes a day. Gentle weightlifting with standard precautions to protect the back. Finding activity like cycling or hiking and get into the habit of engaging in it. Stretching before and after the exercises important. It is also important to contact me if there are any problems like shortness of breath, chest pain, back pain and joint or muscle pain associated with the exercise. 3. Discussed age appropriate screening guidelines. Colonoscopy needs to start at age 50 with stool for occult blood as appropriate. There is a new test that can test for genetic abnormalities in the stool sample. This would not replace a colonoscopy but could be used as a screening tool for patients who do not want a colonoscopy. We discussed the importance of early detection of colon cancer. 4. Discussed current guidelines with respect to breast examination, mammogram and pap smear for early detection of breast and cervical cancer. Patient advised to follow up with these appointments. 5. Discussed safe driving and no use of smart phone while driving 6. Age-appropriate immunizations were discussed. A tetanus booster is needed every 10 years. Flu vaccine is recommended every year just before the start of the flu season. Shingles vaccine is recommended after age 50 but not all insurances cover it.Pneumonia vaccine is given after age 65 unless there are certain comorbidities for which it is started earlier. 7. Diagnostic labs were discussed. These could include CBC CMP and lipids with fasting blood glucose and insulin levels. Vitamin D and hemoglobin A1c testing might be appropriate. Case discussed with collaborating physician Sharon Martin who reviewed the assessment and plan. Chart, medications, labs, vital signs reviewed. Dictation was accomplished with the use of [employer] voice recognition software, prone to medical misidentifications and grammatical errors. This is unintentional and the practitioner does try to identify and correct these, but some could still be present. Please do not hesitate to contact practitioner for clarification. All questions answered to patients satisfaction. Patient verbalized understanding of diagnosis and treatments explained. To call sooner prior to next visit it any questions/concerns arise. 04/08/2025 Chronic kidney disease, stage 3a (ICD-10 - N18.31) 04/21/2025 Chronic anticoagulation (ICD-10 - Z79.01) 05/20/2025 Pulmonary hypertensi on (ICD-10 - I27.20) #Pulmonary Hypertension. Noted on recent echocardiogram. She did have follow-up with cardiology and is supposed to be scheduled with a specialist. She has not yet received an appointment. 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 She is noticing she gets winded more easily especially with inclines declines and stairs. #Peripheral neuropathy. Intermittent symptoms. She does follow with podiatry. Diabetes has been well-controlled with diet. We did discuss option of considering gabapentin. Decided to hold off at this time. #Dysuria. Urinary frequency and odor to urine in the past week or 2. Will get UA and culture. Follow-up pending results. #CKD 3B. Due for updated labs. Will need to monitor closely. #Chronic anticoagulation. Currently on Coumadin. Most recent INR was 1 month ago. Overdue for repeat INR. Denies any signs of bleeding or bruising. Follow-up pending results. #Gout. Uric acid level high in the past. Will recheck labs. Could consider low-dose allopurinol given chronic kidney disease. 05/20/2025 Peripheral neuropath ic pain (ICD-10 - M79.2) #Pulmonary Hypertension. Noted on recent echocardiogram. She did have follow-up with cardiology and is supposed to be scheduled with a specialist. She has not yet received an appointment. 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 She is noticing she gets winded more easily especially with inclines declines and stairs. #Peripheral neuropathy. Intermittent symptoms. She does follow with podiatry. Diabetes has been well-controlled with diet. We did discuss option of considering gabapentin. Decided to hold off at this time. #Dysuria. Urinary frequency and odor to urine in the past week or 2. Will get UA and culture. Follow-up pending results. #CKD 3B. Due for updated labs. Will need to monitor closely. #Chronic anticoagulation. Currently on Coumadin. Most recent INR was 1 month ago. Overdue for repeat INR. Denies any signs of bleeding or bruising. Follow-up pending results. #Gout. Uric acid level high in the past. Will recheck labs. Could consider low-dose allopurinol given chronic kidney disease. 07/02/2025 Peripheral neuropath ic pain (ICD-10 - M79.2) #Pulmonary Hypertension. Noted on recent echocardiogram. Lungs are clear on exam. Breathing is stable. She does have follow-up with cardiology in 2 weeks. #Peripheral neuropathy and PVD. Following with vascular specialist. Has upcoming appointment with them in the next 2 weeks as well. They have suggested further vascular surgery which she prefers not to do at this time. #CKD 3B. Progressive decline. Referred to nephrology. Upcoming appointment later this month. #Chronic anticoagulation. Currently on Coumadin. Overdue for repeat INR. Denies any signs of bleeding or bruising. Follow-up pending results. #Gout. Uric acid level high. Will be seeing nephrology. # Thrombocytopenia. Platelets have continued to trend down. Referred to Heme. Appt scheduled in August. Repeat labs. #Cough. Started with sore throat cough and congestion yesterday. Lungs are clear on exam. COVID flu RSV swab done in the office and negative. Discussed symptomatic management. Discussed signs and symptoms to monitor for and follow-up if no improvement or with any new or worsening symptoms. Case discussed with collaborating physician Sharon Martin who reviewed the assessment and plan. Chart, medications, labs, vital signs reviewed. Dictation was accomplished with the use of [employer] voice recognition software, prone to medical misidentifications and grammatical errors. This is unintentional and the practitioner does try to identify and correct these, but some could still be present. Please do not hesitate to contact practitioner for clarification. All questions answered to patients satisfaction. Patient verbalized understanding of diagnosis and treatments explained. To call sooner prior to next visit it any questions/concerns arise. 09/11/2024 Atrial fibrillation, unspecified type (ICD-10 - I48.91) #A-fib. Has been rate controlled. Denies any chest pain shortness of breath or palpitations. Chronically anticoagulated on Coumadin. Due for follow up INR. She will go today. Also followed by cardiology. She had echo this past week and has f/u with them tomorrow. #Type II by diabetes. Not on meds. Check updated labs and schedule [facility] #Hypertension. Blood pressure controlled on current regimen. Seeing cardiology tomorrow. #Hyperlipidemia. Due for labs. Will follow-up pending results. #Heart failure. Breathing has been stable. Lungs clear on exam. #Right knee pain. Ongoing issue. Currently on Oxycodone 5 mg tablets- 2 tabs twice daily. Discussed we will not increase her pain medication further. Can take 2 tablets in the morning and 2 in the evening or 1 tablet every 6 hours as long as she does not exceed 4 tablets in a day. Case discussed with collaborating physician Sharon Martin who reviewed the assessment and plan. Chart, medications, labs, vital signs reviewed. Dictation was accomplished with the use of [employer] voice recognition software, prone to medical misidentifications and grammatical errors. This is unintentional and the practitioner does try to identify and correct these, but some could still be present. Please do not hesitate to contact practitioner for clarification. All questions answered to patients satisfaction. Patient verbalized understanding of diagnosis and treatments explained. To call sooner prior to next visit it any questions/concerns arise. 09/11/2024 Chronic anticoagulation (ICD-10 - Z79.01) #A-fib. Has been rate controlled. Denies any chest pain shortness of breath or palpitations. Chronically anticoagulated on Coumadin. Due for follow up INR. She will go today. Also followed by cardiology. She had echo this past week and has f/u with them tomorrow. #Type II by diabetes. Not on meds. Check updated labs and schedule MWV #Hypertension. Blood pressure controlled on current regimen. Seeing cardiology tomorrow. #Hyperlipidemia. Due for labs. Will follow-up pending results. #Heart failure. Breathing has been stable. Lungs clear on exam. #Right knee pain. Ongoing issue. Currently on Oxycodone 5 mg tablets- 2 tabs twice daily. Discussed we will not increase her pain medication further. Can take 2 tablets in the morning and 2 in the evening or 1 tablet every 6 hours as long as she does not exceed 4 tablets in a day. Case discussed with collaborating physician Sharon Martin who reviewed the assessment and plan. Chart, medications, labs, vital signs reviewed. Dictation was accomplished with the use of [employer] voice recognition software, prone to medical misidentifications and grammatical errors. This is unintentional and the practitioner does try to identify and correct these, but some could still be present. Please do not hesitate to contact practitioner for clarification. All questions answered to patients satisfaction. Patient verbalized understanding of diagnosis and treatments explained. To call sooner prior to next visit it any questions/concerns arise. 07/07/2025 Acute non-recurrent frontal sinusitis (ICD-10 - J01.10) Chela is a 75-year-old female with past medical history of COPD, pulmonary hypertension, heart failure, atrial fibrillation who presents for urgent visit due to upper respiratory symptoms. She reports 1 week of sore throat, congestion, productive cough, fatigue. She states symptoms have been worsening. Denies shortness of breath, wheezing, chest pain, lightheadedness, difficulty breathing. On exam today, lungs clear to auscultation. No edema of lower extremities. Regular rate with irregular rhythm on cardiac auscultation. Viral swab obtained in office today, results pending. Will follow results. Given duration of symptoms with underlying COPD, plan to treat with azithromycin. Low suspicion for pneumonia given lungs clear to auscultation, however, will obtain chest x-ray for further evaluation. Advised patient to continue with albuterol as needed for wheezing. Discussed importance of rest and adequate fluid consumption. Advised patient to call the office if symptoms persist or worsen. She expresses understanding. #COPD: No wheezing on exam today. Continue albuterol as needed and fluticasone daily. #Atrial fibrillation: Regular rate on cardiac auscultation with irregular rhythm. Rate controlled. Continue following with cardiology. Continue warfarin daily and metoprolol succinate ER 50 mg daily All questions have been answered to patient's satisfaction. Patient verbalized understanding of diagnosis and treatments explained. Advised to call sooner prior to next visit it any questions/concerns arise. Case discussed with collaborating physician Kaley Martin who reviewed the assessment and plan. Chart, medications, labs, vital signs reviewed. Dictation was accomplished with the use of [employer] voice recognition software, which is prone to medical misidentifications and grammatical errors. This are unintentional and the practitioner does try to identify and correct these, but some could still be present. Please do not hesitate to contact practitioner for clarification. 07/07/2025 Productive cough (ICD-10 - R05.8) Chela is a 75-year-old female with past medical history of COPD, pulmonary hypertension, heart failure, atrial fibrillation who presents for urgent visit due to upper respiratory symptoms. She reports 1 week of sore throat, congestion, productive cough, fatigue. She states symptoms have been worsening. Denies shortness of breath, wheezing, chest pain, lightheadedness, difficulty breathing. On exam today, lungs clear to auscultation. No edema of lower extremities. Regular rate with irregular rhythm on cardiac auscultation. Viral swab obtained in office today, results pending. Will follow results. Given duration of symptoms with underlying COPD, plan to treat with azithromycin. Low suspicion for pneumonia given lungs clear to auscultation, however, will obtain chest x-ray for further evaluation. Advised patient to continue with albuterol as needed for wheezing. Discussed importance of rest and adequate fluid consumption. Advised patient to call the office if symptoms persist or worsen. She expresses understanding. #COPD: No wheezing on exam today. Continue albuterol as needed and fluticasone daily. #Atrial fibrillation: Regular rate on cardiac auscultation with irregular rhythm. Rate controlled. Continue following with cardiology. Continue warfarin daily and metoprolol succinate ER 50 mg daily All questions have been answered to patient's satisfaction. Patient verbalized understanding of diagnosis and treatments explained. Advised to call sooner prior to next visit it any questions/concerns arise. Case discussed with collaborating physician Kaley Martin who reviewed the assessment and plan. Chart, medications, labs, vital signs reviewed. Dictation was accomplished with the use of [employer] voice recognition software, which is prone to medical misidentifications and grammatical errors. This are unintentional and the practitioner does try to identify and correct these, but some could still be present. Please do not hesitate to contact practitioner for clarification. 07/07/2025 Paroxysmal atrial fibrillation (ICD-10 - I48.0) Chela is a 75-year-old female with past medical history of COPD, pulmonary hypertension, heart failure, atrial fibrillation who presents for urgent visit due to upper respiratory symptoms. She reports 1 week of sore throat, congestion, productive cough, fatigue. She states symptoms have been worsening. Denies shortness of breath, wheezing, chest pain, lightheadedness, difficulty breathing. On exam today, lungs clear to auscultation. No edema of lower extremities. Regular rate with irregular rhythm on cardiac auscultation. Viral swab obtained in office today, results pending. Will follow results. Given duration of symptoms with underlying COPD, plan to treat with azithromycin. Low suspicion for pneumonia given lungs clear to auscultation, however, will obtain chest x-ray for further evaluation. Advised patient to continue with albuterol as needed for wheezing. Discussed importance of rest and adequate fluid consumption. Advised patient to call the office if symptoms persist or worsen. She expresses understanding. #COPD: No wheezing on exam today. Continue albuterol as needed and fluticasone daily. #Atrial fibrillation: Regular rate on cardiac auscultation with irregular rhythm. Rate controlled. Continue following with cardiology. Continue warfarin daily and metoprolol succinate ER 50 mg daily All questions have been answered to patient's satisfaction. Patient verbalized understanding of diagnosis and treatments explained. Advised to call sooner prior to next visit it any questions/concerns arise. Case discussed with collaborating physician Kaley Martin who reviewed the assessment and plan. Chart, medications, labs, vital signs reviewed. Dictation was accomplished with the use of [employer] voice recognition software, which is prone to medical misidentifications and grammatical errors. This are unintentional and the practitioner does try to identify and correct these, but some could still be present. Please do not hesitate to contact practitioner for clarification. 09/11/2024 Type 2 diabetes mellitus without complication, without long-term current use of insulin (ICD-10 - E11.9) #A-fib. Has been rate controlled. Denies any chest pain shortness of breath or palpitations. Chronically anticoagulated on Coumadin. Due for follow up INR. She will go today. Also followed by cardiology. She had echo this past week and has f/u with them tomorrow. #Type II by diabetes. Not on meds. Check updated labs and schedule [facility] #Hypertension. Blood pressure controlled on current regimen. Seeing cardiology tomorrow. #Hyperlipidemia. Due for labs. Will follow-up pending results. #Heart failure. Breathing has been stable. Lungs clear on exam. #Right knee pain. Ongoing issue. Currently on Oxycodone 5 mg tablets- 2 tabs twice daily. Discussed we will not increase her pain medication further. Can take 2 tablets in the morning and 2 in the evening or 1 tablet every 6 hours as long as she does not exceed 4 tablets in a day. Case discussed with collaborating physician Sharon Martin who reviewed the assessment and plan. Chart, medications, labs, vital signs reviewed. Dictation was accomplished with the use of [employer] voice recognition software, prone to medical misidentifications and grammatical errors. This is unintentional and the practitioner does try to identify and correct these, but some could still be present. Please do not hesitate to contact practitioner for clarification. All questions answered to patients satisfaction. Patient verbalized understanding of diagnosis and treatments explained. To call sooner prior to next visit it any questions/concerns arise. 07/02/2025 CKD stage 3b, GFR 30-44 ml/min (ICD-10 - N18.32) #Pulmonary Hypertension. Noted on recent echocardiogram. Lungs are clear on exam. Breathing is stable. She does have follow-up with cardiology in 2 weeks. #Peripheral neuropathy and PVD. Following with vascular specialist. Has upcoming appointment with them in the next 2 weeks as well. They have suggested further vascular surgery which she prefers not to do at this time. #CKD 3B. Progressive decline. Referred to nephrology. Upcoming appointment later this month. #Chronic anticoagulation. Currently on Coumadin. Overdue for repeat INR. Denies any signs of bleeding or bruising. Follow-up pending results. #Gout. Uric acid level high. Will be seeing nephrology. # Thrombocytopenia. Platelets have continued to trend down. Referred to Heme. Appt scheduled in August. Repeat labs. #Cough. Started with sore throat cough and congestion yesterday. Lungs are clear on exam. COVID flu RSV swab done in the office and negative. Discussed symptomatic management. Discussed signs and symptoms to monitor for and follow-up if no improvement or with any new or worsening symptoms. Case discussed with collaborating physician Sharon Martin who reviewed the assessment and plan. Chart, medications, labs, vital signs reviewed. Dictation was accomplished with the use of [employer] voice recognition software, prone to medical misidentifications and grammatical errors. This is unintentional and the practitioner does try to identify and correct these, but some could still be present. Please do not hesitate to contact practitioner for clarification. All questions answered to patients satisfaction. Patient verbalized understanding of diagnosis and treatments explained. To call sooner prior to next visit it any questions/concerns arise. 05/20/2025 Dysuria (ICD-10 - R30.0) #Pulmonary Hypertension. Noted on recent echocardiogram. She did have follow-up with cardiology and is supposed to be scheduled with a specialist. She has not yet received an appointment. 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 She is noticing she gets winded more easily especially with inclines declines and stairs. #Peripheral neuropathy. Intermittent symptoms. She does follow with podiatry. Diabetes has been well-controlled with diet. We did discuss option of considering gabapentin. Decided to hold off at this time. #Dysuria. Urinary frequency and odor to urine in the past week or 2. Will get UA and culture. Follow-up pending results. #CKD 3B. Due for updated labs. Will need to monitor closely. #Chronic anticoagulation. Currently on Coumadin. Most recent INR was 1 month ago. Overdue for repeat INR. Denies any signs of bleeding or bruising. Follow-up pending results. #Gout. Uric acid level high in the past. Will recheck labs. Could consider low-dose allopurinol given chronic kidney disease. 07/02/2025 Pulmonary hypertensi on (ICD-10 - I27.20) #Pulmonary Hypertension. Noted on recent echocardiogram. Lungs are clear on exam. Breathing is stable. She does have follow-up with cardiology in 2 weeks. #Peripheral neuropathy and PVD. Following with vascular specialist. Has upcoming appointment with them in the next 2 weeks as well. They have suggested further vascular surgery which she prefers not to do at this time. #CKD 3B. Progressive decline. Referred to nephrology. Upcoming appointment later this month. #Chronic anticoagulation. Currently on Coumadin. Overdue for repeat INR. Denies any signs of bleeding or bruising. Follow-up pending results. #Gout. Uric acid level high. Will be seeing nephrology. # Thrombocytopenia. Platelets have continued to trend down. Referred to Heme. Appt scheduled in August. Repeat labs. #Cough. Started with sore throat cough and congestion yesterday. Lungs are clear on exam. COVID flu RSV swab done in the office and negative. Discussed symptomatic management. Discussed signs and symptoms to monitor for and follow-up if no improvement or with any new or worsening symptoms. Case discussed with collaborating physician Sharon Martin who reviewed the assessment and plan. Chart, medications, labs, vital signs reviewed. Dictation was accomplished with the use of [employer] voice recognition software, prone to medical misidentifications and grammatical errors. This is unintentional and the practitioner does try to identify and correct these, but some could still be present. Please do not hesitate to contact practitioner for clarification. All questions answered to patients satisfaction. Patient verbalized understanding of diagnosis and treatments explained. To call sooner prior to next visit it any questions/concerns arise. 02/11/2025 Elevated lipids (ICD-10 - E78.5) #Annual physical. Discussed importance of medication compliance and regular routine follow-up. Due for updated labs. Will get updated labs today follow-up pending results. Plan to follow-up with me every 3 months. Discussed updated tetanus vaccine at the pharmacy. Will order mammogram. Unclear when last colonoscopy was however we will request records. Discussed importance of healthy diet and consistent exercise. PHQ-9 12/23. Audit . #REGAN. On CPAP. #Hyperlipidemia. On statin. Due for updated labs. #Gout. Will get updated uric acid level. Recent attack last month. #A-fib. Anticoagulated on warfarin. Managed by cardiology. Discussed importance of compliance with regular INR checks. #Osteoarthritis and chronic pain. On oxycodone. Discussed importance of follow-up in the office every 3 months. #History of seizure. History of seizure 2019 status post subdural hematoma following a fall, status post brain surgery. No seizure since. On lamotrigine. Comprehensive discussion was done on the following. 1. Nutrition: It is important to follow a healthy diet based on lots of vegetables and legumes and good fat. Avoid processed food and processed carbohydrates. Learn to prepare your own meals. Learn to read labels and avoid high fructose corn syrup, processed chemicals added to increase shelf life and preprepared meals. Avoid fast foods. Learn to eat slowly and plan meals for a week. Try to count calories and be mindful off daily calorie intake. Get into the habit of keeping an eye on your weight by using an appropriate scale. Learn to log exercise and discussed fitness Apps like [employer] which can help keep log off calories taken versus calories burned. Local food should be preferred. Discussed Dirty Dozen Versus Clean Fifteen. Discussed healthy supplements like fish oil, Tumeric, Curcumin, Melatonin, Resveratrol, Probiotics, Vitamin-D, Alpha-Lipoic acid, Vitamin-D and coconut oil. 2. It is important to exercise regularly. Is a good habit to walk at least 30-45 minutes a day. Gentle weightlifting with standard precautions to protect the back. Finding activity like cycling or hiking and get into the habit of engaging in it. Stretching before and after the exercises important. It is also important to contact me if there are any problems like shortness of breath, chest pain, back pain and joint or muscle pain associated with the exercise. 3. Discussed age appropriate screening guidelines. Colonoscopy needs to start at age 50 with stool for occult blood as appropriate. There is a new test that can test for genetic abnormalities in the stool sample. This would not replace a colonoscopy but could be used as a screening tool for patients who do not want a colonoscopy. We discussed the importance of early detection of colon cancer. 4. Discussed current guidelines with respect to breast examination, mammogram and pap smear for early detection of breast and cervical cancer. Patient advised to follow up with these appointments. 5. Discussed safe driving and no use of smart phone while driving 6. Age-appropriate immunizations were discussed. A tetanus booster is needed every 10 years. Flu vaccine is recommended every year just before the start of the flu season. Shingles vaccine is recommended after age 50 but not all insurances cover it.Pneumonia vaccine is given after age 65 unless there are certain comorbidities for which it is started earlier. 7. Diagnostic labs were discussed. These could include CBC CMP and lipids with fasting blood glucose and insulin levels. Vitamin D and hemoglobin A1c testing might be appropriate. Case discussed with collaborating physician Sharon Martin who reviewed the assessment and plan. Chart, medications, labs, vital signs reviewed. Dictation was accomplished with the use of [employer] voice recognition software, prone to medical misidentifications and grammatical errors. This is unintentional and the practitioner does try to identify and correct these, but some could still be present. Please do not hesitate to contact practitioner for clarification. All questions answered to patients satisfaction. Patient verbalized understanding of diagnosis and treatments explained. To call sooner prior to next visit it any questions/concerns arise. 08/06/2024 Unspecified osteoarthritis, unspecified site (ICD-10 - M19.90) This is a [facility] complicated patient past medical history of atrial fibrillation heart failure osteoarthritis chronic pain syndrome depression with her son dying according to history. We offered support discussed chronic pain possibility of increasing the oxycodone to 10 mg twice a day and will schedule follow-up in 1 month to assess pain. She will take additional pain medicine this month to manage her pain 08/06/2024 Major depressive disorder, single episode, unspecified (ICD-10 - F32.9) This is a [facility] complicated patient past medical history of atrial fibrillation heart failure osteoarthritis chronic pain syndrome depression with her son dying according to history. We offered support discussed chronic pain possibility of increasing the oxycodone to 10 mg twice a day and will schedule follow-up in 1 month to assess pain. She will take additional pain medicine this month to manage her pain 02/11/2025 Idiopathic gout, multiple sites (ICD-10 - M10.09) #Annual physical. Discussed importance of medication compliance and regular routine follow-up. Due for updated labs. Will get updated labs today follow-up pending results. Plan to follow-up with me every 3 months. Discussed updated tetanus vaccine at the pharmacy. Will order mammogram. Unclear when last colonoscopy was however we will request records. Discussed importance of healthy diet and consistent exercise. PHQ-9 12/23. Audit . #REGAN. On CPAP. #Hyperlipidemia. On statin. Due for updated labs. #Gout. Will get updated uric acid level. Recent attack last month. #A-fib. Anticoagulated on warfarin. Managed by cardiology. Discussed importance of compliance with regular INR checks. #Osteoarthritis and chronic pain. On oxycodone. Discussed importance of follow-up in the office every 3 months. #History of seizure. History of seizure 2019 status post subdural hematoma following a fall, status post brain surgery. No seizure since. On lamotrigine. Comprehensive discussion was done on the following. 1. Nutrition: It is important to follow a healthy diet based on lots of vegetables and legumes and good fat. Avoid processed food and processed carbohydrates. Learn to prepare your own meals. Learn to read labels and avoid high fructose corn syrup, processed chemicals added to increase shelf life and preprepared meals. Avoid fast foods. Learn to eat slowly and plan meals for a week. Try to count calories and be mindful off daily calorie intake. Get into the habit of keeping an eye on your weight by using an appropriate scale. Learn to log exercise and discussed fitness Apps like [employer] which can help keep log off calories taken versus calories burned. Local food should be preferred. Discussed Dirty Dozen Versus Clean Fifteen. Discussed healthy supplements like fish oil, Tumeric, Curcumin, Melatonin, Resveratrol, Probiotics, Vitamin-D, Alpha-Lipoic acid, Vitamin-D and coconut oil. 2. It is important to exercise regularly. Is a good habit to walk at least 30-45 minutes a day. Gentle weightlifting with standard precautions to protect the back. Finding activity like cycling or hiking and get into the habit of engaging in it. Stretching before and after the exercises important. It is also important to contact me if there are any problems like shortness of breath, chest pain, back pain and joint or muscle pain associated with the exercise. 3. Discussed age appropriate screening guidelines. Colonoscopy needs to start at age 50 with stool for occult blood as appropriate. There is a new test that can test for genetic abnormalities in the stool sample. This would not replace a colonoscopy but could be used as a screening tool for patients who do not want a colonoscopy. We discussed the importance of early detection of colon cancer. 4. Discussed current guidelines with respect to breast examination, mammogram and pap smear for early detection of breast and cervical cancer. Patient advised to follow up with these appointments. 5. Discussed safe driving and no use of smart phone while driving 6. Age-appropriate immunizations were discussed. A tetanus booster is needed every 10 years. Flu vaccine is recommended every year just before the start of the flu season. Shingles vaccine is recommended after age 50 but not all insurances cover it.Pneumonia vaccine is given after age 65 unless there are certain comorbidities for which it is started earlier. 7. Diagnostic labs were discussed. These could include CBC CMP and lipids with fasting blood glucose and insulin levels. Vitamin D and hemoglobin A1c testing might be appropriate. Case discussed with collaborating physician Sharon Martin who reviewed the assessment and plan. Chart, medications, labs, vital signs reviewed. Dictation was accomplished with the use of [employer] voice recognition software, prone to medical misidentifications and grammatical errors. This is unintentional and the practitioner does try to identify and correct these, but some could still be present. Please do not hesitate to contact practitioner for clarification. All questions answered to patients satisfaction. Patient verbalized understanding of diagnosis and treatments explained. To call sooner prior to next visit it any questions/concerns arise. 05/20/2025 CKD stage 3b, GFR 30-44 ml/min (ICD-10 - N18.32) #Pulmonary Hypertension. Noted on recent echocardiogram. She did have follow-up with cardiology and is supposed to be scheduled with a specialist. She has not yet received an appointment. 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 She is noticing she gets winded more easily especially with inclines declines and stairs. #Peripheral neuropathy. Intermittent symptoms. She does follow with podiatry. Diabetes has been well-controlled with diet. We did discuss option of considering gabapentin. Decided to hold off at this time. #Dysuria. Urinary frequency and odor to urine in the past week or 2. Will get UA and culture. Follow-up pending results. #CKD 3B. Due for updated labs. Will need to monitor closely. #Chronic anticoagulation. Currently on Coumadin. Most recent INR was 1 month ago. Overdue for repeat INR. Denies any signs of bleeding or bruising. Follow-up pending results. #Gout. Uric acid level high in the past. Will recheck labs. Could consider low-dose allopurinol given chronic kidney disease. 07/02/2025 Coagulation defect, unspecified (ICD-10 - D68.9) #Pulmonary Hypertension. Noted on recent echocardiogram. Lungs are clear on exam. Breathing is stable. She does have follow-up with cardiology in 2 weeks. #Peripheral neuropathy and PVD. Following with vascular specialist. Has upcoming appointment with them in the next 2 weeks as well. They have suggested further vascular surgery which she prefers not to do at this time. #CKD 3B. Progressive decline. Referred to nephrology. Upcoming appointment later this month. #Chronic anticoagulation. Currently on Coumadin. Overdue for repeat INR. Denies any signs of bleeding or bruising. Follow-up pending results. #Gout. Uric acid level high. Will be seeing nephrology. # Thrombocytopenia. Platelets have continued to trend down. Referred to Heme. Appt scheduled in August. Repeat labs. #Cough. Started with sore throat cough and congestion yesterday. Lungs are clear on exam. COVID flu RSV swab done in the office and negative. Discussed symptomatic management. Discussed signs and symptoms to monitor for and follow-up if no improvement or with any new or worsening symptoms. Case discussed with collaborating physician Sharon Martin who reviewed the assessment and plan. Chart, medications, labs, vital signs reviewed. Dictation was accomplished with the use of [employer] voice recognition software, prone to medical misidentifications and grammatical errors. This is unintentional and the practitioner does try to identify and correct these, but some could still be present. Please do not hesitate to contact practitioner for clarification. All questions answered to patients satisfaction. Patient verbalized understanding of diagnosis and treatments explained. To call sooner prior to next visit it any questions/concerns arise. 09/11/2024 Essential (primary) hypertension (ICD-10 - I10) #A-fib. Has been rate controlled. Denies any chest pain shortness of breath or palpitations. Chronically anticoagulated on Coumadin. Due for follow up INR. She will go today. Also followed by cardiology. She had echo this past week and has f/u with them tomorrow. #Type II by diabetes. Not on meds. Check updated labs and schedule [facility] #Hypertension. Blood pressure controlled on current regimen. Seeing cardiology tomorrow. #Hyperlipidemia. Due for labs. Will follow-up pending results. #Heart failure. Breathing has been stable. Lungs clear on exam. #Right knee pain. Ongoing issue. Currently on Oxycodone 5 mg tablets- 2 tabs twice daily. Discussed we will not increase her pain medication further. Can take 2 tablets in the morning and 2 in the evening or 1 tablet every 6 hours as long as she does not exceed 4 tablets in a day. Case discussed with collaborating physician Sharon Martin who reviewed the assessment and plan. Chart, medications, labs, vital signs reviewed. Dictation was accomplished with the use of [employer] voice recognition software, prone to medical misidentifications and grammatical errors. This is unintentional and the practitioner does try to identify and correct these, but some could still be present. Please do not hesitate to contact practitioner for clarification. All questions answered to patients satisfaction. Patient verbalized understanding of diagnosis and treatments explained. To call sooner prior to next visit it any questions/concerns arise. 07/07/2025 Mucopurulent chronic bronchitis (ICD-10 - J41.1) Chela is a 75-year-old female with past medical history of COPD, pulmonary hypertension, heart failure, atrial fibrillation who presents for urgent visit due to upper respiratory symptoms. She reports 1 week of sore throat, congestion, productive cough, fatigue. She states symptoms have been worsening. Denies shortness of breath, wheezing, chest pain, lightheadedness, difficulty breathing. On exam today, lungs clear to auscultation. No edema of lower extremities. Regular rate with irregular rhythm on cardiac auscultation. Viral swab obtained in office today, results pending. Will follow results. Given duration of symptoms with underlying COPD, plan to treat with azithromycin. Low suspicion for pneumonia given lungs clear to auscultation, however, will obtain chest x-ray for further evaluation. Advised patient to continue with albuterol as needed for wheezing. Discussed importance of rest and adequate fluid consumption. Advised patient to call the office if symptoms persist or worsen. She expresses understanding. #COPD: No wheezing on exam today. Continue albuterol as needed and fluticasone daily. #Atrial fibrillation: Regular rate on cardiac auscultation with irregular rhythm. Rate controlled. Continue following with cardiology. Continue warfarin daily and metoprolol succinate ER 50 mg daily All questions have been answered to patient's satisfaction. Patient verbalized understanding of diagnosis and treatments explained. Advised to call sooner prior to next visit it any questions/concerns arise. Case discussed with collaborating physician Kaley Martin who reviewed the assessment and plan. Chart, medications, labs, vital signs reviewed. Dictation was accomplished with the use of [employer] voice recognition software, which is prone to medical misidentifications and grammatical errors. This are unintentional and the practitioner does try to identify and correct these, but some could still be present. Please do not hesitate to contact practitioner for clarification. 07/07/2025 Encounter for examination of blood pressure without abnormal findings (ICD-10 - Z01.30) Chlea is a 75-year-old female with past medical history of COPD, pulmonary hypertension, heart failure, atrial fibrillation who presents for urgent visit due to upper respiratory symptoms. She reports 1 week of sore throat, congestion, productive cough, fatigue. She states symptoms have been worsening. Denies shortness of breath, wheezing, chest pain, lightheadedness, difficulty breathing. On exam today, lungs clear to auscultation. No edema of lower extremities. Regular rate with irregular rhythm on cardiac auscultation. Viral swab obtained in office today, results pending. Will follow results. Given duration of symptoms with underlying COPD, plan to treat with azithromycin. Low suspicion for pneumonia given lungs clear to auscultation, however, will obtain chest x-ray for further evaluation. Advised patient to continue with albuterol as needed for wheezing. Discussed importance of rest and adequate fluid consumption. Advised patient to call the office if symptoms persist or worsen. She expresses understanding. #COPD: No wheezing on exam today. Continue albuterol as needed and fluticasone daily. #Atrial fibrillation: Regular rate on cardiac auscultation with irregular rhythm. Rate controlled. Continue following with cardiology. Continue warfarin daily and metoprolol succinate ER 50 mg daily All questions have been answered to patient's satisfaction. Patient verbalized understanding of diagnosis and treatments explained. Advised to call sooner prior to next visit it any questions/concerns arise. Case discussed with collaborating physician Kaley Martin who reviewed the assessment and plan. Chart, medications, labs, vital signs reviewed. Dictation was accomplished with the use of [employer] voice recognition software, which is prone to medical misidentifications and grammatical errors. This are unintentional and the practitioner does try to identify and correct these, but some could still be present. Please do not hesitate to contact practitioner for clarification. 09/11/2024 Acquired hyperlipoproteinemia (ICD-10 - E78.5) #A-fib. Has been rate controlled. Denies any chest pain shortness of breath or palpitations. Chronically anticoagulated on Coumadin. Due for follow up INR. She will go today. Also followed by cardiology. She had echo this past week and has f/u with them tomorrow. #Type II by diabetes. Not on meds. Check updated labs and schedule [facility] #Hypertension. Blood pressure controlled on current regimen. Seeing cardiology tomorrow. #Hyperlipidemia. Due for labs. Will follow-up pending results. #Heart failure. Breathing has been stable. Lungs clear on exam. #Right knee pain. Ongoing issue. Currently on Oxycodone 5 mg tablets- 2 tabs twice daily. Discussed we will not increase her pain medication further. Can take 2 tablets in the morning and 2 in the evening or 1 tablet every 6 hours as long as she does not exceed 4 tablets in a day. Case discussed with collaborating physician Sharon Martin who reviewed the assessment and plan. Chart, medications, labs, vital signs reviewed. Dictation was accomplished with the use of [employer] voice recognition software, prone to medical misidentifications and grammatical errors. This is unintentional and the practitioner does try to identify and correct these, but some could still be present. Please do not hesitate to contact practitioner for clarification. All questions answered to patients satisfaction. Patient verbalized understanding of diagnosis and treatments explained. To call sooner prior to next visit it any questions/concerns arise. 07/02/2025 Idiopathic gout, multiple sites (ICD-10 - M10.09) #Pulmonary Hypertension. Noted on recent echocardiogram. Lungs are clear on exam. Breathing is stable. She does have follow-up with cardiology in 2 weeks. #Peripheral neuropathy and PVD. Following with vascular specialist. Has upcoming appointment with them in the next 2 weeks as well. They have suggested further vascular surgery which she prefers not to do at this time. #CKD 3B. Progressive decline. Referred to nephrology. Upcoming appointment later this month. #Chronic anticoagulation. Currently on Coumadin. Overdue for repeat INR. Denies any signs of bleeding or bruising. Follow-up pending results. #Gout. Uric acid level high. Will be seeing nephrology. # Thrombocytopenia. Platelets have continued to trend down. Referred to Heme. Appt scheduled in August. Repeat labs. #Cough. Started with sore throat cough and congestion yesterday. Lungs are clear on exam. COVID flu RSV swab done in the office and negative. Discussed symptomatic management. Discussed signs and symptoms to monitor for and follow-up if no improvement or with any new or worsening symptoms. Case discussed with collaborating physician Sharon Martin who reviewed the assessment and plan. Chart, medications, labs, vital signs reviewed. Dictation was accomplished with the use of [employer] voice recognition software, prone to medical misidentifications and grammatical errors. This is unintentional and the practitioner does try to identify and correct these, but some could still be present. Please do not hesitate to contact practitioner for clarification. All questions answered to patients satisfaction. Patient verbalized understanding of diagnosis and treatments explained. To call sooner prior to next visit it any questions/concerns arise. 02/11/2025 Paroxysmal atrial fibrillation (ICD-10 - I48.0) #Annual physical. Discussed importance of medication compliance and regular routine follow-up. Due for updated labs. Will get updated labs today follow-up pending results. Plan to follow-up with me every 3 months. Discussed updated tetanus vaccine at the pharmacy. Will order mammogram. Unclear when last colonoscopy was however we will request records. Discussed importance of healthy diet and consistent exercise. PHQ-9 12/23. Audit . #REGAN. On CPAP. #Hyperlipidemia. On statin. Due for updated labs. #Gout. Will get updated uric acid level. Recent attack last month. #A-fib. Anticoagulated on warfarin. Managed by cardiology. Discussed importance of compliance with regular INR checks. #Osteoarthritis and chronic pain. On oxycodone. Discussed importance of follow-up in the office every 3 months. #History of seizure. History of seizure 2019 status post subdural hematoma following a fall, status post brain surgery. No seizure since. On lamotrigine. Comprehensive discussion was done on the following. 1. Nutrition: It is important to follow a healthy diet based on lots of vegetables and legumes and good fat. Avoid processed food and processed carbohydrates. Learn to prepare your own meals. Learn to read labels and avoid high fructose corn syrup, processed chemicals added to increase shelf life and preprepared meals. Avoid fast foods. Learn to eat slowly and plan meals for a week. Try to count calories and be mindful off daily calorie intake. Get into the habit of keeping an eye on your weight by using an appropriate scale. Learn to log exercise and discussed fitness Apps like [employer] which can help keep log off calories taken versus calories burned. Local food should be preferred. Discussed Dirty Dozen Versus Clean Fifteen. Discussed healthy supplements like fish oil, Tumeric, Curcumin, Melatonin, Resveratrol, Probiotics, Vitamin-D, Alpha-Lipoic acid, Vitamin-D and coconut oil. 2. It is important to exercise regularly. Is a good habit to walk at least 30-45 minutes a day. Gentle weightlifting with standard precautions to protect the back. Finding activity like cycling or hiking and get into the habit of engaging in it. Stretching before and after the exercises important. It is also important to contact me if there are any problems like shortness of breath, chest pain, back pain and joint or muscle pain associated with the exercise. 3. Discussed age appropriate screening guidelines. Colonoscopy needs to start at age 50 with stool for occult blood as appropriate. There is a new test that can test for genetic abnormalities in the stool sample. This would not replace a colonoscopy but could be used as a screening tool for patients who do not want a colonoscopy. We discussed the importance of early detection of colon cancer. 4. Discussed current guidelines with respect to breast examination, mammogram and pap smear for early detection of breast and cervical cancer. Patient advised to follow up with these appointments. 5. Discussed safe driving and no use of smart phone while driving 6. Age-appropriate immunizations were discussed. A tetanus booster is needed every 10 years. Flu vaccine is recommended every year just before the start of the flu season. Shingles vaccine is recommended after age 50 but not all insurances cover it.Pneumonia vaccine is given after age 65 unless there are certain comorbidities for which it is started earlier. 7. Diagnostic labs were discussed. These could include CBC CMP and lipids with fasting blood glucose and insulin levels. Vitamin D and hemoglobin A1c testing might be appropriate. Case discussed with collaborating physician Sharon Martin who reviewed the assessment and plan. Chart, medications, labs, vital signs reviewed. Dictation was accomplished with the use of [employer] voice recognition software, prone to medical misidentifications and grammatical errors. This is unintentional and the practitioner does try to identify and correct these, but some could still be present. Please do not hesitate to contact practitioner for clarification. All questions answered to patients satisfaction. Patient verbalized understanding of diagnosis and treatments explained. To call sooner prior to next visit it any questions/concerns arise. 05/20/2025 Coagulation defect, unspecified (ICD-10 - D68.9) #Pulmonary Hypertension. Noted on recent echocardiogram. She did have follow-up with cardiology and is supposed to be scheduled with a specialist. She has not yet received an appointment. 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 She is noticing she gets winded more easily especially with inclines declines and stairs. #Peripheral neuropathy. Intermittent symptoms. She does follow with podiatry. Diabetes has been well-controlled with diet. We did discuss option of considering gabapentin. Decided to hold off at this time. #Dysuria. Urinary frequency and odor to urine in the past week or 2. Will get UA and culture. Follow-up pending results. #CKD 3B. Due for updated labs. Will need to monitor closely. #Chronic anticoagulation. Currently on Coumadin. Most recent INR was 1 month ago. Overdue for repeat INR. Denies any signs of bleeding or bruising. Follow-up pending results. #Gout. Uric acid level high in the past. Will recheck labs. Could consider low-dose allopurinol given chronic kidney disease. 08/06/2024 Chronic pain syndrom e (ICD-10 - G89.4) This is a medic ally complicated patient past medical history of atrial fibrillation heart failure osteoarthritis chronic pain syndrome depression with her son dying according to history. We offered support discussed chronic pain possibility of increasing the oxycodone to 10 mg twice a day and will schedule follow-up in 1 month to assess pain. She will take additional pain medicine this month to manage her pain 05/20/2025 Idiopathic gout, multiple sites (ICD-10 - M10.09) #Pulmonary Hypertension. Noted on recent echocardiogram. She did have follow-up with cardiology and is supposed to be scheduled with a specialist. She has not yet received an appointment. 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 She is noticing she gets winded more easily especially with inclines declines and stairs. #Peripheral neuropathy. Intermittent symptoms. She does follow with podiatry. Diabetes has been well-controlled with diet. We did discuss option of considering gabapentin. Decided to hold off at this time. #Dysuria. Urinary frequency and odor to urine in the past week or 2. Will get UA and culture. Follow-up pending results. #CKD 3B. Due for updated labs. Will need to monitor closely. #Chronic anticoagulation. Currently on Coumadin. Most recent INR was 1 month ago. Overdue for repeat INR. Denies any signs of bleeding or bruising. Follow-up pending results. #Gout. Uric acid level high in the past. Will recheck labs. Could consider low-dose allopurinol given chronic kidney disease. 02/11/2025 Breast cancer screening by mammogram (ICD-10 - Z12.31) #Annual physical. Discussed importance of medication compliance and regular routine follow-up. Due for updated labs. Will get updated labs today follow-up pending results. Plan to follow-up with me every 3 months. Discussed updated tetanus vaccine at the pharmacy. Will order mammogram. Unclear when last colonoscopy was however we will request records. Discussed importance of healthy diet and consistent exercise. PHQ-9 12/23. Audit . #REGAN. On CPAP. #Hyperlipidemia. On statin. Due for updated labs. #Gout. Will get updated uric acid level. Recent attack last month. #A-fib. Anticoagulated on warfarin. Managed by cardiology. Discussed importance of compliance with regular INR checks. #Osteoarthritis and chronic pain. On oxycodone. Discussed importance of follow-up in the office every 3 months. #History of seizure. History of seizure 2019 status post subdural hematoma following a fall, status post brain surgery. No seizure since. On lamotrigine. Comprehensive discussion was done on the following. 1. Nutrition: It is important to follow a healthy diet based on lots of vegetables and legumes and good fat. Avoid processed food and processed carbohydrates. Learn to prepare your own meals. Learn to read labels and avoid high fructose corn syrup, processed chemicals added to increase shelf life and preprepared meals. Avoid fast foods. Learn to eat slowly and plan meals for a week. Try to count calories and be mindful off daily calorie intake. Get into the habit of keeping an eye on your weight by using an appropriate scale. Learn to log exercise and discussed fitness Apps like [employer] which can help keep log off calories taken versus calories burned. Local food should be preferred. Discussed Dirty Dozen Versus Clean Fifteen. Discussed healthy supplements like fish oil, Tumeric, Curcumin, Melatonin, Resveratrol, Probiotics, Vitamin-D, Alpha-Lipoic acid, Vitamin-D and coconut oil. 2. It is important to exercise regularly. Is a good habit to walk at least 30-45 minutes a day. Gentle weightlifting with standard precautions to protect the back. Finding activity like cycling or hiking and get into the habit of engaging in it. Stretching before and after the exercises important. It is also important to contact me if there are any problems like shortness of breath, chest pain, back pain and joint or muscle pain associated with the exercise. 3. Discussed age appropriate screening guidelines. Colonoscopy needs to start at age 50 with stool for occult blood as appropriate. There is a new test that can test for genetic abnormalities in the stool sample. This would not replace a colonoscopy but could be used as a screening tool for patients who do not want a colonoscopy. We discussed the importance of early detection of colon cancer. 4. Discussed current guidelines with respect to breast examination, mammogram and pap smear for early detection of breast and cervical cancer. Patient advised to follow up with these appointments. 5. Discussed safe driving and no use of smart phone while driving 6. Age-appropriate immunizations were discussed. A tetanus booster is needed every 10 years. Flu vaccine is recommended every year just before the start of the flu season. Shingles vaccine is recommended after age 50 but not all insurances cover it.Pneumonia vaccine is given after age 65 unless there are certain comorbidities for which it is started earlier. 7. Diagnostic labs were discussed. These could include CBC CMP and lipids with fasting blood glucose and insulin levels. Vitamin D and hemoglobin A1c testing might be appropriate. Case discussed with collaborating physician Sharon Martin who reviewed the assessment and plan. Chart, medications, labs, vital signs reviewed. Dictation was accomplished with the use of [employer] voice recognition software, prone to medical misidentifications and grammatical errors. This is unintentional and the practitioner does try to identify and correct these, but some could still be present. Please do not hesitate to contact practitioner for clarification. All questions answered to patients satisfaction. Patient verbalized understanding of diagnosis and treatments explained. To call sooner prior to next visit it any questions/concerns arise. 07/02/2025 HTN (hypertension) (ICD-10 - I10) #Pulmonary Hypertension. Noted on recent echocardiogram. Lungs are clear on exam. Breathing is stable. She does have follow-up with cardiology in 2 weeks. #Peripheral neuropathy and PVD. Following with vascular specialist. Has upcoming appointment with them in the next 2 weeks as well. They have suggested further vascular surgery which she prefers not to do at this time. #CKD 3B. Progressive decline. Referred to nephrology. Upcoming appointment later this month. #Chronic anticoagulation. Currently on Coumadin. Overdue for repeat INR. Denies any signs of bleeding or bruising. Follow-up pending results. #Gout. Uric acid level high. Will be seeing nephrology. # Thrombocytopenia. Platelets have continued to trend down. Referred to Heme. Appt scheduled in August. Repeat labs. #Cough. Started with sore throat cough and congestion yesterday. Lungs are clear on exam. COVID flu RSV swab done in the office and negative. Discussed symptomatic management. Discussed signs and symptoms to monitor for and follow-up if no improvement or with any new or worsening symptoms. Case discussed with collaborating physician Sharon Martin who reviewed the assessment and plan. Chart, medications, labs, vital signs reviewed. Dictation was accomplished with the use of [employer] voice recognition software, prone to medical misidentifications and grammatical errors. This is unintentional and the practitioner does try to identify and correct these, but some could still be present. Please do not hesitate to contact practitioner for clarification. All questions answered to patients satisfaction. Patient verbalized understanding of diagnosis and treatments explained. To call sooner prior to next visit it any questions/concerns arise. 09/11/2024 Heart failure, unspecified (ICD-10 - I50.9) #A-fib. Has been rate controlled. Denies any chest pain shortness of breath or palpitations. Chronically anticoagulated on Coumadin. Due for follow up INR. She will go today. Also followed by cardiology. She had echo this past week and has f/u with them tomorrow. #Type II by diabetes. Not on meds. Check updated labs and schedule [facility] #Hypertension. Blood pressure controlled on current regimen. Seeing cardiology tomorrow. #Hyperlipidemia. Due for labs. Will follow-up pending results. #Heart failure. Breathing has been stable. Lungs clear on exam. #Right knee pain. Ongoing issue. Currently on Oxycodone 5 mg tablets- 2 tabs twice daily. Discussed we will not increase her pain medication further. Can take 2 tablets in the morning and 2 in the evening or 1 tablet every 6 hours as long as she does not exceed 4 tablets in a day. Case discussed with collaborating physician Sharon Martin who reviewed the assessment and plan. Chart, medications, labs, vital signs reviewed. Dictation was accomplished with the use of [employer] voice recognition software, prone to medical misidentifications and grammatical errors. This is unintentional and the practitioner does try to identify and correct these, but some could still be present. Please do not hesitate to contact practitioner for clarification. All questions answered to patients satisfaction. Patient verbalized understanding of diagnosis and treatments explained. To call sooner prior to next visit it any questions/concerns arise. 09/11/2024 Presence of prosthet ic heart valve (ICD-10 - Z95.2) #A-fib. Has been rate controlled. Denies any chest pain shortness of breath or palpitations. Chronically anticoagulated on Coumadin. Due for follow up INR. She will go today. Also followed by cardiology. She had echo this past week and has f/u with them tomorrow. #Type II by diabetes. Not on meds. Check updated labs and schedule [facility] #Hypertension. Blood pressure controlled on current regimen. Seeing cardiology tomorrow. #Hyperlipidemia. Due for labs. Will follow-up pending results. #Heart failure. Breathing has been stable. Lungs clear on exam. #Right knee pain. Ongoing issue. Currently on Oxycodone 5 mg tablets- 2 tabs twice daily. Discussed we will not increase her pain medication further. Can take 2 tablets in the morning and 2 in the evening or 1 tablet every 6 hours as long as she does not exceed 4 tablets in a day. Case discussed with collaborating physician Sharon Martin who reviewed the assessment and plan. Chart, medications, labs, vital signs reviewed. Dictation was accomplished with the use of [employer] voice recognition software, prone to medical misidentifications and grammatical errors. This is unintentional and the practitioner does try to identify and correct these, but some could still be present. Please do not hesitate to contact practitioner for clarification. All questions answered to patients satisfaction. Patient verbalized understanding of diagnosis and treatments explained. To call sooner prior to next visit it any questions/concerns arise. 02/11/2025 Unspecified osteoarthritis, unspecified site (ICD-10 - M19.90) #Annual physical. Discussed importance of medication compliance and regular routine follow-up. Due for updated labs. Will get updated labs today follow-up pending results. Plan to follow-up with me every 3 months. Discussed updated tetanus vaccine at the pharmacy. Will order mammogram. Unclear when last colonoscopy was however we will request records. Discussed importance of healthy diet and consistent exercise. PHQ-9 12/23. Audit . #REGAN. On CPAP. #Hyperlipidemia. On statin. Due for updated labs. #Gout. Will get updated uric acid level. Recent attack last month. #A-fib. Anticoagulated on warfarin. Managed by cardiology. Discussed importance of compliance with regular INR checks. #Osteoarthritis and chronic pain. On oxycodone. Discussed importance of follow-up in the office every 3 months. #History of seizure. History of seizure 2019 status post subdural hematoma following a fall, status post brain surgery. No seizure since. On lamotrigine. Comprehensive discussion was done on the following. 1. Nutrition: It is important to follow a healthy diet based on lots of vegetables and legumes and good fat. Avoid processed food and processed carbohydrates. Learn to prepare your own meals. Learn to read labels and avoid high fructose corn syrup, processed chemicals added to increase shelf life and preprepared meals. Avoid fast foods. Learn to eat slowly and plan meals for a week. Try to count calories and be mindful off daily calorie intake. Get into the habit of keeping an eye on your weight by using an appropriate scale. Learn to log exercise and discussed fitness Apps like [employer] which can help keep log off calories taken versus calories burned. Local food should be preferred. Discussed [employer] Versus Clean Fifteen. Discussed healthy supplements like fish oil, Tumeric, Curcumin, Melatonin, Resveratrol, Probiotics, Vitamin-D, Alpha-Lipoic acid, Vitamin-D and coconut oil. 2. It is important to exercise regularly. Is a good habit to walk at least 30-45 minutes a day. Gentle weightlifting with standard precautions to protect the back. Finding activity like cycling or hiking and get into the habit of engaging in it. Stretching before and after the exercises important. It is also important to contact me if there are any problems like shortness of breath, chest pain, back pain and joint or muscle pain associated with the exercise. 3. Discussed age appropriate screening guidelines. Colonoscopy needs to start at age 50 with stool for occult blood as appropriate. There is a new test that can test for genetic abnormalities in the stool sample. This would not replace a colonoscopy but could be used as a screening tool for patients who do not want a colonoscopy. We discussed the importance of early detection of colon cancer. 4. Discussed current guidelines with respect to breast examination, mammogram and pap smear for early detection of breast and cervical cancer. Patient advised to follow up with these appointments. 5. Discussed safe driving and no use of smart phone while driving 6. Age-appropriate immunizations were discussed. A tetanus booster is needed every 10 years. Flu vaccine is recommended every year just before the start of the flu season. Shingles vaccine is recommended after age 50 but not all insurances cover it.Pneumonia vaccine is given after age 65 unless there are certain comorbidities for which it is started earlier. 7. Diagnostic labs were discussed. These could include CBC CMP and lipids with fasting blood glucose and insulin levels. Vitamin D and hemoglobin A1c testing might be appropriate. Case discussed with collaborating physician Sharno Martin who reviewed the assessment and plan. Chart, medications, labs, vital signs reviewed. Dictation was accomplished with the use of [employer] voice recognition software, prone to medical misidentifications and grammatical errors. This is unintentional and the practitioner does try to identify and correct these, but some could still be present. Please do not hesitate to contact practitioner for clarification. All questions answered to patients satisfaction. Patient verbalized understanding of diagnosis and treatments explained. To call sooner prior to next visit it any questions/concerns arise. 07/02/2025 Thrombocytopenia (ICD-10 - D69.6) #Pulmonary Hypertension. Noted on recent echocardiogram. Lungs are clear on exam. Breathing is stable. She does have follow-up with cardiology in 2 weeks. #Peripheral neuropathy and PVD. Following with vascular specialist. Has upcoming appointment with them in the next 2 weeks as well. They have suggested further vascular surgery which she prefers not to do at this time. #CKD 3B. Progressive decline. Referred to nephrology. Upcoming appointment later this month. #Chronic anticoagulation. Currently on Coumadin. Overdue for repeat INR. Denies any signs of bleeding or bruising. Follow-up pending results. #Gout. Uric acid level high. Will be seeing nephrology. # Thrombocytopenia. Platelets have continued to trend down. Referred to Heme. Appt scheduled in August. Repeat labs. #Cough. Started with sore throat cough and congestion yesterday. Lungs are clear on exam. COVID flu RSV swab done in the office and negative. Discussed symptomatic management. Discussed signs and symptoms to monitor for and follow-up if no improvement or with any new or worsening symptoms. Case discussed with collaborating physician Sharon Martin who reviewed the assessment and plan. Chart, medications, labs, vital signs reviewed. Dictation was accomplished with the use of [employer] voice recognition software, prone to medical misidentifications and grammatical errors. This is unintentional and the practitioner does try to identify and correct these, but some could still be present. Please do not hesitate to contact practitioner for clarification. All questions answered to patients satisfaction. Patient verbalized understanding of diagnosis and treatments explained. To call sooner prior to next visit it any questions/concerns arise. 05/20/2025 HTN (hypertension) (ICD-10 - I10) #Pulmonary Hypertension. Noted on recent echocardiogram. She did have follow-up with cardiology and is supposed to be scheduled with a specialist. She has not yet received an appointment. 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 She is noticing she gets winded more easily especially with inclines declines and stairs. #Peripheral neuropathy. Intermittent symptoms. She does follow with podiatry. Diabetes has been well-controlled with diet. We did discuss option of considering gabapentin. Decided to hold off at this time. #Dysuria. Urinary frequency and odor to urine in the past week or 2. Will get UA and culture. Follow-up pending results. #CKD 3B. Due for updated labs. Will need to monitor closely. #Chronic anticoagulation. Currently on Coumadin. Most recent INR was 1 month ago. Overdue for repeat INR. Denies any signs of bleeding or bruising. Follow-up pending results. #Gout. Uric acid level high in the past. Will recheck labs. Could consider low-dose allopurinol given chronic kidney disease. 02/11/2025 Presence of prosthet ic heart valve (ICD-10 - Z95.2) #Annual physical. Discussed importance of medication compliance and regular routine follow-up. Due for updated labs. Will get updated labs today follow-up pending results. Plan to follow-up with me every 3 months. Discussed updated tetanus vaccine at the pharmacy. Will order mammogram. Unclear when last colonoscopy was however we will request records. Discussed importance of healthy diet and consistent exercise. PHQ-9 12/23. Audit . #REGAN. On CPAP. #Hyperlipidemia. On statin. Due for updated labs. #Gout. Will get updated uric acid level. Recent attack last month. #A-fib. Anticoagulated on warfarin. Managed by cardiology. Discussed importance of compliance with regular INR checks. #Osteoarthritis and chronic pain. On oxycodone. Discussed importance of follow-up in the office every 3 months. #History of seizure. History of seizure 2019 status post subdural hematoma following a fall, status post brain surgery. No seizure since. On lamotrigine. Comprehensive discussion was done on the following. 1. Nutrition: It is important to follow a healthy diet based on lots of vegetables and legumes and good fat. Avoid processed food and processed carbohydrates. Learn to prepare your own meals. Learn to read labels and avoid high fructose corn syrup, processed chemicals added to increase shelf life and preprepared meals. Avoid fast foods. Learn to eat slowly and plan meals for a week. Try to count calories and be mindful off daily calorie intake. Get into the habit of keeping an eye on your weight by using an appropriate scale. Learn to log exercise and discussed fitness Apps like [employer] which can help keep log off calories taken versus calories burned. Local food should be preferred. Discussed Dirty Dozen Versus Clean Fifteen. Discussed healthy supplements like fish oil, Tumeric, Curcumin, Melatonin, Resveratrol, Probiotics, Vitamin-D, Alpha-Lipoic acid, Vitamin-D and coconut oil. 2. It is important to exercise regularly. Is a good habit to walk at least 30-45 minutes a day. Gentle weightlifting with standard precautions to protect the back. Finding activity like cycling or hiking and get into the habit of engaging in it. Stretching before and after the exercises important. It is also important to contact me if there are any problems like shortness of breath, chest pain, back pain and joint or muscle pain associated with the exercise. 3. Discussed age appropriate screening guidelines. Colonoscopy needs to start at age 50 with stool for occult blood as appropriate. There is a new test that can test for genetic abnormalities in the stool sample. This would not replace a colonoscopy but could be used as a screening tool for patients who do not want a colonoscopy. We discussed the importance of early detection of colon cancer. 4. Discussed current guidelines with respect to breast examination, mammogram and pap smear for early detection of breast and cervical cancer. Patient advised to follow up with these appointments. 5. Discussed safe driving and no use of smart phone while driving 6. Age-appropriate immunizations were discussed. A tetanus booster is needed every 10 years. Flu vaccine is recommended every year just before the start of the flu season. Shingles vaccine is recommended after age 50 but not all insurances cover it.Pneumonia vaccine is given after age 65 unless there are certain comorbidities for which it is started earlier. 7. Diagnostic labs were discussed. These could include CBC CMP and lipids with fasting blood glucose and insulin levels. Vitamin D and hemoglobin A1c testing might be appropriate. Case discussed with collaborating physician Sharon Martin who reviewed the assessment and plan. Chart, medications, labs, vital signs reviewed. Dictation was accomplished with the use of [employer] voice recognition software, prone to medical misidentifications and grammatical errors. This is unintentional and the practitioner does try to identify and correct these, but some could still be present. Please do not hesitate to contact practitioner for clarification. All questions answered to patients satisfaction. Patient verbalized understanding of diagnosis and treatments explained. To call sooner prior to next visit it any questions/concerns arise. 07/02/2025 Cough (ICD-10 - R05.9) #Pulmonary Hypertension. Noted on recent echocardiogram. Lungs are clear on exam. Breathing is stable. She does have follow-up with cardiology in 2 weeks. #Peripheral neuropathy and PVD. Following with vascular specialist. Has upcoming appointment with them in the next 2 weeks as well. They have suggested further vascular surgery which she prefers not to do at this time. #CKD 3B. Progressive decline. Referred to nephrology. Upcoming appointment later this month. #Chronic anticoagulation. Currently on Coumadin. Overdue for repeat INR. Denies any signs of bleeding or bruising. Follow-up pending results. #Gout. Uric acid level high. Will be seeing nephrology. # Thrombocytopenia. Platelets have continued to trend down. Referred to Heme. Appt scheduled in August. Repeat labs. #Cough. Started with sore throat cough and congestion yesterday. Lungs are clear on exam. COVID flu RSV swab done in the office and negative. Discussed symptomatic management. Discussed signs and symptoms to monitor for and follow-up if no improvement or with any new or worsening symptoms. Case discussed with collaborating physician Sharon Martin who reviewed the assessment and plan. Chart, medications, labs, vital signs reviewed. Dictation was accomplished with the use of [employer] voice recognition software, prone to medical misidentifications and grammatical errors. This is unintentional and the practitioner does try to identify and correct these, but some could still be present. Please do not hesitate to contact practitioner for clarification. All questions answered to patients satisfaction. Patient verbalized understanding of diagnosis and treatments explained. To call sooner prior to next visit it any questions/concerns arise. 09/11/2024 Right knee pain, unspecified chronicity (ICD-10 - M25.561) #A-fib. Has been rate controlled. Denies any chest pain shortness of breath or palpitations. Chronically anticoagulated on Coumadin. Due for follow up INR. She will go today. Also followed by cardiology. She had echo this past week and has f/u with them tomorrow. #Type II by diabetes. Not on meds. Check updated labs and schedule MWV #Hypertension. Blood pressure controlled on current regimen. Seeing cardiology tomorrow. #Hyperlipidemia. Due for labs. Will follow-up pending results. #Heart failure. Breathing has been stable. Lungs clear on exam. #Right knee pain. Ongoing issue. Currently on Oxycodone 5 mg tablets- 2 tabs twice daily. Discussed we will not increase her pain medication further. Can take 2 tablets in the morning and 2 in the evening or 1 tablet every 6 hours as long as she does not exceed 4 tablets in a day. Case discussed with collaborating physician Sharon Martin who reviewed the assessment and plan. Chart, medications, labs, vital signs reviewed. Dictation was accomplished with the use of [employer] voice recognition software, prone to medical misidentifications and grammatical errors. This is unintentional and the practitioner does try to identify and correct these, but some could still be present. Please do not hesitate to contact practitioner for clarification. All questions answered to patients satisfaction. Patient verbalized understanding of diagnosis and treatments explained. To call sooner prior to next visit it any questions/concerns arise. 02/11/2025 Benign essential hypertension (ICD-10 - I10) #Annual physical. Discussed importance of medication compliance and regular routine follow-up. Due for updated labs. Will get updated labs today follow-up pending results. Plan to follow-up with me every 3 months. Discussed updated tetanus vaccine at the pharmacy. Will order mammogram. Unclear when last colonoscopy was however we will request records. Discussed importance of healthy diet and consistent exercise. PHQ-9 12/23. Audit . #REGAN. On CPAP. #Hyperlipidemia. On statin. Due for updated labs. #Gout. Will get updated uric acid level. Recent attack last month. #A-fib. Anticoagulated on warfarin. Managed by cardiology. Discussed importance of compliance with regular INR checks. #Osteoarthritis and chronic pain. On oxycodone. Discussed importance of follow-up in the office every 3 months. #History of seizure. History of seizure 2019 status post subdural hematoma following a fall, status post brain surgery. No seizure since. On lamotrigine. Comprehensive discussion was done on the following. 1. Nutrition: It is important to follow a healthy diet based on lots of vegetables and legumes and good fat. Avoid processed food and processed carbohydrates. Learn to prepare your own meals. Learn to read labels and avoid high fructose corn syrup, processed chemicals added to increase shelf life and preprepared meals. Avoid fast foods. Learn to eat slowly and plan meals for a week. Try to count calories and be mindful off daily calorie intake. Get into the habit of keeping an eye on your weight by using an appropriate scale. Learn to log exercise and discussed fitness Apps like [employer] which can help keep log off calories taken versus calories burned. Local food should be preferred. Discussed Dirty Dozen Versus Clean Fifteen. Discussed healthy supplements like fish oil, Tumeric, Curcumin, Melatonin, Resveratrol, Probiotics, Vitamin-D, Alpha-Lipoic acid, Vitamin-D and coconut oil. 2. It is important to exercise regularly. Is a good habit to walk at least 30-45 minutes a day. Gentle weightlifting with standard precautions to protect the back. Finding activity like cycling or hiking and get into the habit of engaging in it. Stretching before and after the exercises important. It is also important to contact me if there are any problems like shortness of breath, chest pain, back pain and joint or muscle pain associated with the exercise. 3. Discussed age appropriate screening guidelines. Colonoscopy needs to start at age 50 with stool for occult blood as appropriate. There is a new test that can test for genetic abnormalities in the stool sample. This would not replace a colonoscopy but could be used as a screening tool for patients who do not want a colonoscopy. We discussed the importance of early detection of colon cancer. 4. Discussed current guidelines with respect to breast examination, mammogram and pap smear for early detection of breast and cervical cancer. Patient advised to follow up with these appointments. 5. Discussed safe driving and no use of smart phone while driving 6. Age-appropriate immunizations were discussed. A tetanus booster is needed every 10 years. Flu vaccine is recommended every year just before the start of the flu season. Shingles vaccine is recommended after age 50 but not all insurances cover it.Pneumonia vaccine is given after age 65 unless there are certain comorbidities for which it is started earlier. 7. Diagnostic labs were discussed. These could include CBC CMP and lipids with fasting blood glucose and insulin levels. Vitamin D and hemoglobin A1c testing might be appropriate. Case discussed with collaborating physician Sharon Martin who reviewed the assessment and plan. Chart, medications, labs, vital signs reviewed. Dictation was accomplished with the use of [employer] voice recognition software, prone to medical misidentifications and grammatical errors. This is unintentional and the practitioner does try to identify and correct these, but some could still be present. Please do not hesitate to contact practitioner for clarification. All questions answered to patients satisfaction. Patient verbalized understanding of diagnosis and treatments explained. To call sooner prior to next visit it any questions/concerns arise. 02/11/2025 Type 2 diabetes mellitus without complication, without long-term current use of insulin (ICD-10 - E11.9) #Annual physical. Discussed importance of medication compliance and regular routine follow-up. Due for updated labs. Will get updated labs today follow-up pending results. Plan to follow-up with me every 3 months. Discussed updated tetanus vaccine at the pharmacy. Will order mammogram. Unclear when last colonoscopy was however we will request records. Discussed importance of healthy diet and consistent exercise. PHQ-9 12/23. Audit C0/12. #REGAN. On CPAP. #Hyperlipidemia. On statin. Due for updated labs. #Gout. Will get updated uric acid level. Recent attack last month. #A-fib. Anticoagulated on warfarin. Managed by cardiology. Discussed importance of compliance with regular INR checks. #Osteoarthritis and chronic pain. On oxycodone. Discussed importance of follow-up in the office every 3 months. #History of seizure. History of seizure 2019 status post subdural hematoma following a fall, status post brain surgery. No seizure since. On lamotrigine. Comprehensive discussion was done on the following. 1. Nutrition: It is important to follow a healthy diet based on lots of vegetables and legumes and good fat. Avoid processed food and processed carbohydrates. Learn to prepare your own meals. Learn to read labels and avoid high fructose corn syrup, processed chemicals added to increase shelf life and preprepared meals. Avoid fast foods. Learn to eat slowly and plan meals for a week. Try to count calories and be mindful off daily calorie intake. Get into the habit of keeping an eye on your weight by using an appropriate scale. Learn to log exercise and discussed fitness Apps like [employer] which can help keep log off calories taken versus calories burned. Local food should be preferred. Discussed Dirty Dozen Versus Clean Fifteen. Discussed healthy supplements like fish oil, Tumeric, Curcumin, Melatonin, Resveratrol, Probiotics, Vitamin-D, Alpha-Lipoic acid, Vitamin-D and coconut oil. 2. It is important to exercise regularly. Is a good habit to walk at least 30-45 minutes a day. Gentle weightlifting with standard precautions to protect the back. Finding activity like cycling or hiking and get into the habit of engaging in it. Stretching before and after the exercises important. It is also important to contact me if there are any problems like shortness of breath, chest pain, back pain and joint or muscle pain associated with the exercise. 3. Discussed age appropriate screening guidelines. Colonoscopy needs to start at age 50 with stool for occult blood as appropriate. There is a new test that can test for genetic abnormalities in the stool sample. This would not replace a colonoscopy but could be used as a screening tool for patients who do not want a colonoscopy. We discussed the importance of early detection of colon cancer. 4. Discussed current guidelines with respect to breast examination, mammogram and pap smear for early detection of breast and cervical cancer. Patient advised to follow up with these appointments. 5. Discussed safe driving and no use of smart phone while driving 6. Age-appropriate immunizations were discussed. A tetanus booster is needed every 10 years. Flu vaccine is recommended every year just before the start of the flu season. Shingles vaccine is recommended after age 50 but not all insurances cover it.Pneumonia vaccine is given after age 65 unless there are certain comorbidities for which it is started earlier. 7. Diagnostic labs were discussed. These could include CBC CMP and lipids with fasting blood glucose and insulin levels. Vitamin D and hemoglobin A1c testing might be appropriate. Case discussed with collaborating physician Sharon Martin who reviewed the assessment and plan. Chart, medications, labs, vital signs reviewed. Dictation was accomplished with the use of [employer] voice recognition software, prone to medical misidentifications and grammatical errors. This is unintentional and the practitioner does try to identify and correct these, but some could still be present. Please do not hesitate to contact practitioner for clarification. All questions answered to patients satisfaction. Patient verbalized understanding of diagnosis and treatments explained. To call sooner prior to next visit it any questions/concerns arise. 02/11/2025 Chronic pain syndrom e (ICD-10 - G89.4) #Annual physical. Discussed importance of medication compliance and regular routine follow-up. Due for updated labs. Will get updated labs today follow-up pending results. Plan to follow-up with me every 3 months. Discussed updated tetanus vaccine at the pharmacy. Will order mammogram. Unclear when last colonoscopy was however we will request records. Discussed importance of healthy diet and consistent exercise. PHQ-9 12/23. Audit . #REGAN. On CPAP. #Hyperlipidemia. On statin. Due for updated labs. #Gout. Will get updated uric acid level. Recent attack last month. #A-fib. Anticoagulated on warfarin. Managed by cardiology. Discussed importance of compliance with regular INR checks. #Osteoarthritis and chronic pain. On oxycodone. Discussed importance of follow-up in the office every 3 months. #History of seizure. History of seizure 2019 status post subdural hematoma following a fall, status post brain surgery. No seizure since. On lamotrigine. Comprehensive discussion was done on the following. 1. Nutrition: It is important to follow a healthy diet based on lots of vegetables and legumes and good fat. Avoid processed food and processed carbohydrates. Learn to prepare your own meals. Learn to read labels and avoid high fructose corn syrup, processed chemicals added to increase shelf life and preprepared meals. Avoid fast foods. Learn to eat slowly and plan meals for a week. Try to count calories and be mindful off daily calorie intake. Get into the habit of keeping an eye on your weight by using an appropriate scale. Learn to log exercise and discussed fitness Apps like [employer] which can help keep log off calories taken versus calories burned. Local food should be preferred. Discussed Dirty Dozen Versus Clean Fifteen. Discussed healthy supplements like fish oil, Tumeric, Curcumin, Melatonin, Resveratrol, Probiotics, Vitamin-D, Alpha-Lipoic acid, Vitamin-D and coconut oil. 2. It is important to exercise regularly. Is a good habit to walk at least 30-45 minutes a day. Gentle weightlifting with standard precautions to protect the back. Finding activity like cycling or hiking and get into the habit of engaging in it. Stretching before and after the exercises important. It is also important to contact me if there are any problems like shortness of breath, chest pain, back pain and joint or muscle pain associated with the exercise. 3. Discussed age appropriate screening guidelines. Colonoscopy needs to start at age 50 with stool for occult blood as appropriate. There is a new test that can test for genetic abnormalities in the stool sample. This would not replace a colonoscopy but could be used as a screening tool for patients who do not want a colonoscopy. We discussed the importance of early detection of colon cancer. 4. Discussed current guidelines with respect to breast examination, mammogram and pap smear for early detection of breast and cervical cancer. Patient advised to follow up with these appointments. 5. Discussed safe driving and no use of smart phone while driving 6. Age-appropriate immunizations were discussed. A tetanus booster is needed every 10 years. Flu vaccine is recommended every year just before the start of the flu season. Shingles vaccine is recommended after age 50 but not all insurances cover it.Pneumonia vaccine is given after age 65 unless there are certain comorbidities for which it is started earlier. 7. Diagnostic labs were discussed. These could include CBC CMP and lipids with fasting blood glucose and insulin levels. Vitamin D and hemoglobin A1c testing might be appropriate. Case discussed with collaborating physician Sharon Martin who reviewed the assessment and plan. Chart, medications, labs, vital signs reviewed. Dictation was accomplished with the use of [employer] voice recognition software, prone to medical misidentifications and grammatical errors. This is unintentional and the practitioner does try to identify and correct these, but some could still be present. Please do not hesitate to contact practitioner for clarification. All questions answered to patients satisfaction. Patient verbalized understanding of diagnosis and treatments explained. To call sooner prior to next visit it any questions/concerns arise. 02/11/2025 Hx of seizure disord er (ICD-10 - Z86.69) #Annual physical. Discussed importance of medication compliance and regular routine follow-up. Due for updated labs. Will get updated labs today follow-up pending results. Plan to follow-up with me every 3 months. Discussed updated tetanus vaccine at the pharmacy. Will order mammogram. Unclear when last colonoscopy was however we will request records. Discussed importance of healthy diet and consistent exercise. PHQ-9 12/23. Audit . #REGAN. On CPAP. #Hyperlipidemia. On statin. Due for updated labs. #Gout. Will get updated uric acid level. Recent attack last month. #A-fib. Anticoagulated on warfarin. Managed by cardiology. Discussed importance of compliance with regular INR checks. #Osteoarthritis and chronic pain. On oxycodone. Discussed importance of follow-up in the office every 3 months. #History of seizure. History of seizure 2019 status post subdural hematoma following a fall, status post brain surgery. No seizure since. On lamotrigine. Comprehensive discussion was done on the following. 1. Nutrition: It is important to follow a healthy diet based on lots of vegetables and legumes and good fat. Avoid processed food and processed carbohydrates. Learn to prepare your own meals. Learn to read labels and avoid high fructose corn syrup, processed chemicals added to increase shelf life and preprepared meals. Avoid fast foods. Learn to eat slowly and plan meals for a week. Try to count calories and be mindful off daily calorie intake. Get into the habit of keeping an eye on your weight by using an appropriate scale. Learn to log exercise and discussed fitness Apps like [employer] which can help keep log off calories taken versus calories burned. Local food should be preferred. Discussed D[employer]zen Versus Clean [employer]teen. Discussed healthy supplements like fish oil, Tumeric, Curcumin, Melatonin, Resveratrol, Probiotics, Vitamin-D, Alpha-Lipoic acid, Vitamin-D and coconut oil. 2. It is important to exercise regularly. Is a good habit to walk at least 30-45 minutes a day. Gentle weightlifting with standard precautions to protect the back. Finding activity like cycling or hiking and get into the habit of engaging in it. Stretching before and after the exercises important. It is also important to contact me if there are any problems like shortness of breath, chest pain, back pain and joint or muscle pain associated with the exercise. 3. Discussed age appropriate screening guidelines. Colonoscopy needs to start at age 50 with stool for occult blood as appropriate. There is a new test that can test for genetic abnormalities in the stool sample. This would not replace a colonoscopy but could be used as a screening tool for patients who do not want a colonoscopy. We discussed the importance of early detection of colon cancer. 4. Discussed current guidelines with respect to breast examination, mammogram and pap smear for early detection of breast and cervical cancer. Patient advised to follow up with these appointments. 5. Discussed safe driving and no use of smart phone while driving 6. Age-appropriate immunizations were discussed. A tetanus booster is needed every 10 years. Flu vaccine is recommended every year just before the start of the flu season. Shingles vaccine is recommended after age 50 but not all insurances cover it.Pneumonia vaccine is given after age 65 unless there are certain comorbidities for which it is started earlier. 7. Diagnostic labs were discussed. These could include CBC CMP and lipids with fasting blood glucose and insulin levels. Vitamin D and hemoglobin A1c testing might be appropriate. Case discussed with collaborating physician Sharon Martin who reviewed the assessment and plan. Chart, medications, labs, vital signs reviewed. Dictation was accomplished with the use of [employer] voice recognition software, prone to medical misidentifications and grammatical errors. This is unintentional and the practitioner does try to identify and correct these, but some could still be present. Please do not hesitate to contact practitioner for clarification. All questions answered to patients satisfaction. Patient verbalized understanding of diagnosis and treatments explained. To call sooner prior to next visit it any questions/concerns arise. 02/11/2025 Alcohol screening (ICD-10 - Z13.39) #Annual physical. Discussed importance of medication compliance and regular routine follow-up. Due for updated labs. Will get updated labs today follow-up pending results. Plan to follow-up with me every 3 months. Discussed updated tetanus vaccine at the pharmacy. Will order mammogram. Unclear when last colonoscopy was however we will request records. Discussed importance of healthy diet and consistent exercise. PHQ-9 12/23. Audit . #REGAN. On CPAP. #Hyperlipidemia. On statin. Due for updated labs. #Gout. Will get updated uric acid level. Recent attack last month. #A-fib. Anticoagulated on warfarin. Managed by cardiology. Discussed importance of compliance with regular INR checks. #Osteoarthritis and chronic pain. On oxycodone. Discussed importance of follow-up in the office every 3 months. #History of seizure. History of seizure 2019 status post subdural hematoma following a fall, status post brain surgery. No seizure since. On lamotrigine. Comprehensive discussion was done on the following. 1. Nutrition: It is important to follow a healthy diet based on lots of vegetables and legumes and good fat. Avoid processed food and processed carbohydrates. Learn to prepare your own meals. Learn to read labels and avoid high fructose corn syrup, processed chemicals added to increase shelf life and preprepared meals. Avoid fast foods. Learn to eat slowly and plan meals for a week. Try to count calories and be mindful off daily calorie intake. Get into the habit of keeping an eye on your weight by using an appropriate scale. Learn to log exercise and discussed fitness Apps like [employer] which can help keep log off calories taken versus calories burned. Local food should be preferred. Discussed Dirty Dozen Versus Clean Fifteen. Discussed healthy supplements like fish oil, Tumeric, Curcumin, Melatonin, Resveratrol, Probiotics, Vitamin-D, Alpha-Lipoic acid, Vitamin-D and coconut oil. 2. It is important to exercise regularly. Is a good habit to walk at least 30-45 minutes a day. Gentle weightlifting with standard precautions to protect the back. Finding activity like cycling or hiking and get into the habit of engaging in it. Stretching before and after the exercises important. It is also important to contact me if there are any problems like shortness of breath, chest pain, back pain and joint or muscle pain associated with the exercise. 3. Discussed age appropriate screening guidelines. Colonoscopy needs to start at age 50 with stool for occult blood as appropriate. There is a new test that can test for genetic abnormalities in the stool sample. This would not replace a colonoscopy but could be used as a screening tool for patients who do not want a colonoscopy. We discussed the importance of early detection of colon cancer. 4. Discussed current guidelines with respect to breast examination, mammogram and pap smear for early detection of breast and cervical cancer. Patient advised to follow up with these appointments. 5. Discussed safe driving and no use of smart phone while driving 6. Age-appropriate immunizations were discussed. A tetanus booster is needed every 10 years. Flu vaccine is recommended every year just before the start of the flu season. Shingles vaccine is recommended after age 50 but not all insurances cover it.Pneumonia vaccine is given after age 65 unless there are certain comorbidities for which it is started earlier. 7. Diagnostic labs were discussed. These could include CBC CMP and lipids with fasting blood glucose and insulin levels. Vitamin D and hemoglobin A1c testing might be appropriate. Case discussed with collaborating physician Sharon Martin who reviewed the assessment and plan. Chart, medications, labs, vital signs reviewed. Dictation was accomplished with the use of [employer] voice recognition software, prone to medical misidentifications and grammatical errors. This is unintentional and the practitioner does try to identify and correct these, but some could still be present. Please do not hesitate to contact practitioner for clarification. All questions answered to patients satisfaction. Patient verbalized understanding of diagnosis and treatments explained. To call sooner prior to next visit it any questions/concerns arise. 02/11/2025 Encounter for screening for other disorder (ICD-10 - Z13.89) #Annual physical. Discussed importance of medication compliance and regular routine follow-up. Due for updated labs. Will get updated labs today follow-up pending results. Plan to follow-up with me every 3 months. Discussed updated tetanus vaccine at the pharmacy. Will order mammogram. Unclear when last colonoscopy was however we will request records. Discussed importance of healthy diet and consistent exercise. PHQ-9 12/23. Audit . #REGAN. On CPAP. #Hyperlipidemia. On statin. Due for updated labs. #Gout. Will get updated uric acid level. Recent attack last month. #A-fib. Anticoagulated on warfarin. Managed by cardiology. Discussed importance of compliance with regular INR checks. #Osteoarthritis and chronic pain. On oxycodone. Discussed importance of follow-up in the office every 3 months. #History of seizure. History of seizure 2019 status post subdural hematoma following a fall, status post brain surgery. No seizure since. On lamotrigine. Comprehensive discussion was done on the following. 1. Nutrition: It is important to follow a healthy diet based on lots of vegetables and legumes and good fat. Avoid processed food and processed carbohydrates. Learn to prepare your own meals. Learn to read labels and avoid high fructose corn syrup, processed chemicals added to increase shelf life and preprepared meals. Avoid fast foods. Learn to eat slowly and plan meals for a week. Try to count calories and be mindful off daily calorie intake. Get into the habit of keeping an eye on your weight by using an appropriate scale. Learn to log exercise and discussed fitness Apps like [employer] which can help keep log off calories taken versus calories burned. Local food should be preferred. Discussed D[employer] Versus Clean Fifteen. Discussed healthy supplements like fish oil, Tumeric, Curcumin, Melatonin, Resveratrol, Probiotics, Vitamin-D, Alpha-Lipoic acid, Vitamin-D and coconut oil. 2. It is important to exercise regularly. Is a good habit to walk at least 30-45 minutes a day. Gentle weightlifting with standard precautions to protect the back. Finding activity like cycling or hiking and get into the habit of engaging in it. Stretching before and after the exercises important. It is also important to contact me if there are any problems like shortness of breath, chest pain, back pain and joint or muscle pain associated with the exercise. 3. Discussed age appropriate screening guidelines. Colonoscopy needs to start at age 50 with stool for occult blood as appropriate. There is a new test that can test for genetic abnormalities in the stool sample. This would not replace a colonoscopy but could be used as a screening tool for patients who do not want a colonoscopy. We discussed the importance of early detection of colon cancer. 4. Discussed current guidelines with respect to breast examination, mammogram and pap smear for early detection of breast and cervical cancer. Patient advised to follow up with these appointments. 5. Discussed safe driving and no use of smart phone while driving 6. Age-appropriate immunizations were discussed. A tetanus booster is needed every 10 years. Flu vaccine is recommended every year just before the start of the flu season. Shingles vaccine is recommended after age 50 but not all insurances cover it.Pneumonia vaccine is given after age 65 unless there are certain comorbidities for which it is started earlier. 7. Diagnostic labs were discussed. These could include CBC CMP and lipids with fasting blood glucose and insulin levels. Vitamin D and hemoglobin A1c testing might be appropriate. Case discussed with collaborating physician Sharon Martin who reviewed the assessment and plan. Chart, medications, labs, vital signs reviewed. Dictation was accomplished with the use of [employer] voice recognition software, prone to medical misidentifications and grammatical errors. This is unintentional and the practitioner does try to identify and correct these, but some could still be present. Please do not hesitate to contact practitioner for clarification. All questions answered to patients satisfaction. Patient verbalized understanding of diagnosis and treatments explained. To call sooner prior to next visit it any questions/concerns arise. Plan Of Treatment Pending Test Test Name Order Date X ray : Foot, right 07/02/2023 X ray : Shoulder, left 02/12/2023 X ray : Shoulder, right 02/12/2023 Echocardiogram 11/29/2017 Mammogram 01/24/2022 Mammogram 02/11/2025 X ray : Chest with 2 views 07/02/2023 C difficile Toxins A+B, EIA 06/19/2024 MAMMOGRAM, SCREENING 10/29/2023 Bone Density 11/29/2017 Ultrasound : Kidneys and Bladder 024 Urine toxicology 11/29/2017 BASIC METABOLIC PANEL 07/02/2025 CBC (COMPLETE BLOOD COUNT) 11/29/2017 CBC (COMPLETE BLOOD COUNT) 05/05/2019 CBC (COMPLETE BLOOD COUNT) 09/04/2018 CBC (COMPLETE BLOOD COUNT) 03/01/2020 CBC (COMPLETE BLOOD COUNT) 10/07/2019 CBC (COMPLETE BLOOD COUNT) 08/04/2020 CBC (COMPLETE BLOOD COUNT) WITH DIFF 07/2023 COMPREHENSIVE METABOLIC PANEL 03/01/2020 COMPREHENSIVE METABOLIC PANEL 09/04/2018 COMPREHENSIVE METABOLIC PANEL 10/07/2019 COMPREHENSIVE METABOLIC PANEL 05/05/2019 COMPREHENSIVE METABOLIC PANEL 11/29/2017 COMPREHENSIVE METABOLIC PANEL 04/29/2024 COMPREHENSIVE METABOLIC PANEL 08/04/2020 HEMOGLOBIN A1C 08/04/2020 HEMOGLOBIN A1C 11/29/2017 HEMOGLOBIN A1C 10/07/2019 HEMOGLOBIN A1C 09/04/2018 LIPID PANEL 09/04/2018 LIPID PANEL 11/29/2017 LIPID PANEL 08/04/2020 URIC ACID 05/20/2025 URINALYSIS, COMPLETE 11/29/2017 URINALYSIS, COMPLETE 09/04/2018 URINALYSIS, COMPLETE 08/04/2020 Digoxin Level 04/29/2024 Comprehensive Metabolic Panel 06/19/2024 Uric Acid 02/11/2025 BNP (B -Type Natriuretic Peptide) 2019 CT Head w/o Contrast 01/15/2019 MRI Brain w/o Contrast 09/12/2022 XR Chest 2 Views 07/07/2025 MM Digital Mammo Screening 03/13/2018 CBC WITH AUTO DIFF 06/19/2024 CBC WITH AUTO DIFF 04/08/2025 VITAMIN B12 02/11/2025 PT/INR 02/11/2025 PT/INR 05/20/2025 PT/INR 04/29/2024 PT/INR 01/24/2022 PT/INR 05/04/2022 PT/INR 08/30/2023 PT/INR 04/21/2025 URINE CULTURE 05/20/2025 UA WITH CULTURE IF INDICATED 02/11/2025 BASIC METABOLIC PANEL (BMP) 04/08/2025 LIPID PANEL, STANDARD 12/19/2023 LIPID PANEL, STANDARD 09/11/2024 LIPID PANEL, STANDARD 02/11/2025 LIPID PANEL, STANDARD 10/20/2021 COMPREHENSIVE METABOLIC PANEL 06/19/2024 COMPREHENSIVE METABOLIC PANEL 10/20/2021 COMPREHENSIVE METABOLIC PANEL 02/11/2025 COMPREHENSIVE METABOLIC PANEL 09/11/2024 COMPREHENSIVE METABOLIC PANEL 05/20/2025 COMPREHENSIVE METABOLIC PANEL 12/19/2023 COMPREHENSIVE METABOLIC PANEL 04/05/2023 URIC ACID 04/05/2023 CBC (H/H, RBC, INDICES, WBC, PLT) 2024 CBC (INCLUDES DIFF/PLT) 05/20/2025 CBC (INCLUDES DIFF/PLT) 09/11/2024 CBC (INCLUDES DIFF/PLT) 02/11/2025 CBC (INCLUDES DIFF/PLT) 10/20/2021 CBC (INCLUDES DIFF/PLT) 06/19/2024 CBC (INCLUDES DIFF/PLT) 04/05/2023 CBC (INCLUDES DIFF/PLT) 12/19/2023 URINALYSIS, COMPLETE 12/19/2023 URINALYSIS, COMPLETE 01/24/2022 URINALYSIS, COMPLETE 03/10/2021 URINALYSIS, COMPLETE 10/20/2021 URINALYSIS, COMPLETE 05/20/2025 PROTHROMBIN TIME-INR 07/02/2025 PROTHROMBIN TIME-INR 10/20/2021 HEMOGLOBIN A1c 04/29/2024 HEMOGLOBIN A1c 09/11/2024 HEMOGLOBIN A1c 06/19/2024 HEMOGLOBIN A1c 02/11/2025 HEMOGLOBIN A1c 12/19/2023 TSH W/REFLEX TO FT4 02/11/2025 DIGOXIN 04/05/2023 Shoulder Min 2 Views Right 12/26/2022 US Duplex Venous Study LT 09/27/2020 Knee 3 Views Right 12/26/2022 SURESWAB(R) ADVANCED VAGINITIS PLUS, TMA 12/28/2023 URIC ACID 04/08/2025 PPC Rapid Covid/Strep/Flu/RSV 07/07/2025 Future Test Test Name Order Date PT/INR 04/05/2022 PT/INR 06/01/2022 CBC (COMPLETE BLOOD COUNT) WITH DIFF COMPREHENSIVE METABOLIC PANEL 12/24/2022 Next Appt Details Provider Name:Linda Vogel, 0 09/02/2025 01:00:00 PM, [address], [address], [place], [address], Provider Name:Linda Vogel, 0 02/24/2026 01:00:00 PM, [address], [address], [place], [address], Insurance Providers Payer Name Payer Address Payer Phone Subscriber Number Group Number Insured Name Patient Relationship to Insured Coverage Start Date Coverage End Date Medicare Part B [id number] [address] [place] [address] [id number] CHELA LAL Self - patient is the insured [employer] ([employer]OH[employer]EN) [address] [place] [address] [id number] CHELA LAL Self - patient is the insured Medical (General) History Medical History History ICD Code congestive heart failure depression diabetes mellitus hypertension obesity osteoporosis Arthritis Atrial fibrillation Essential hypertension I10 Surgical History Surgery Date(Month/Year) mitral valve replacement 5 years ago colonoscopy Brain surgery Hospitalization History Reason Date(Month/Year) [facility] CHF exacerbation February 2023 14 days in [facility]
--- OUTSIDE RECORDS SUMMARY | 2025-07-24 14:54 | XMS_ITS | Clinical Summary ---
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 V24, [facility] V28) 07/17/2017 DX:Diabetic neuropathy ([facility]) Diabetes mellitus type 2 wit h neurological manifestations ([facility] V24, [facility] V28) 07/17/2017 DX:Diabetes mellitus type 2 with neurological manifestations ([facility]) Ischemic colitis ([facility] V24) 07/17/2017 D X:Ischemic colitis ([facility]) CHF (congestive heart failur e) ([facility] V24, [facility] V28) 07/17/2017 DX:CHF (congestive heart fa ilure) ([facility]) Hyperlipidemia 07/17/2017 DX:Hyperlipidemi a Depression 07/17/2017 DX:Depression COPD (chronic obstructive pu lmonary disease) ([facility] V24, [facility] V28) 07/17/2017 DX:COPD (chronic o bstructive pulmonary disease) ([facility]) Cervical radiculopathy 07/17/2017 DX:Cervic al radiculopathy Atrial fibrillation ([facility] V24, [facility] V28) 07/17/2017 DX:Atrial fibrillation ([facility]) Lumbar spinal stenosis 07/17/2017 DX:Lumbar spinal stenosis Lumbar radiculopathy 07/17/2017 DX:Lumbar r adiculopathy DJD (degenerative joint dise ase) of knee 07/17/2017 DX:DJD (degenerative joint d isease) of knee S/P MVR (mitral valve replacement) 07/17/2017 DX:S/P MVR (mitral valve replacement) Esophagitis DX:Esophagitis Dysphagia DX:Dysphagia Colon polyp DX:Colon polyp History of mitral valve repair D X:History of mitral valve repair Social History Tobacco Use Types Packs/Day Years Used Date Smoking Tobacco: Former Smokeless Tobacco: Current Comments Unknown Sex and Gender Information Value Date Recorded Sex Assigned at Female 08/12/2024 3:44 PM EST Legal Sex Female 7:58 AM EST Gender Identity Female 08/12/2024 3:44 PM EST Sexual Orientation Not on file Last Filed Vital Signs Vital Sign Reading Time Taken Comments Blood Pressure 130/74 04/21/2024 2:53 PM EDT Pulse 78 04/21/2024 2:53 PM EDT Temperature - - Respiratory Rate - - Oxygen Saturation - - Inhaled Oxygen Concentration - - Weight 103 kg (226 lb) 04/21/2024 2:53 PM EDT Height 172.7 cm (5' 8 ) 04/21/2024 2:53 PM EDT Body Mass Index 34.36 04/21/2024 2:53 PM EDT Plan of Treatment Health Maintenance Due Date Last Done Comments Breast Cancer Screening 1950 Colorectal Cancer Screening: Colonoscopy 1950 Diabetes: Annual Foot Exam 1962 Diabetes: Annual Retina Eye Exam 1962 DTaP,Tdap,and Td Vaccines (1 - Tdap) 1971 RSV Immunization Adult Patients (1 - Risk 50-74 years 1-dose series) 2002 Zoster Vaccines (1 of 2) 2002 Pneumococcal Vaccine: 50+ Years (2 of 2 - PCV) 06/30/2011 06/30/2010 Falls Risk Assessment 07/09/2022 Hepatitis C Screening 07/09/2022 Medicare Annual Wellness Visit 07/09/2022 Social Influencers of Health Screening 07/09/2022 Diabetes: Annual Urine Albumin-Creatinine Ratio (uACR) 07/14/2022 Depression Screening 07/30/2024 COVID-19 Vaccine ( season) 2025 08/11/2021, 01/17/2021, 12/20/2020 Influenza Vaccine (#1) 2025 , 05/01/2022, 04/15/2021, Additional history exists Diabetes: Blood Sugar Control Test (HGBA1C) 10/04/2025 04/06/2025, 07/15/2024 Diabetes: Annual GFR (Glomerular Filtration Rate) 05/20/2026 05/20/2025, 04/06/2025, 07/15/2024 Hypertension/CHF/CAD Annual BMP Blood Test 05/20/2026 05/20/2025, 04/06/2025, 07/15/2024 Osteoporosis Screening (Bone Density Screening) 12/12/2027 12/11/2017 Cholesterol Screening (Lipid Panel) 04/06/2030 04/06/2025 HIB Vaccines Aged Out No longer eligi ble based on patient's age to complete this topic HPV Vaccines Aged Out No longer eligi ble based on patient's age to complete this topic Hepatitis A Vaccines Aged Out No long er eligible based on patient's age to complete this topic Hepatitis B Vaccines Aged Out No long er eligible based on patient's age to complete this topic IPV Vaccines Aged Out No longer eligi ble based on patient's age to complete this topic MMR Vaccines Aged Out No longer eligi ble based on patient's age to complete this topic Meningococcal ACWY Vaccine Aged Out N o longer eligible based on patient's age to complete this topic Meningococcal B Vaccine Aged Out No l onger eligible based on patient's age to complete this topic RSV Immunization Patients Under 20 months Aged Out No longer eligible based on patient's age to complete this topic Varicella Vaccines Aged Out No longer eligible based on patient's age to complete this topic Procedures Procedure Name Priority Date/Time Associated Diagnosis Comments CBC WITH AUTO DIFFERENTIAL Routine 05/20/2025 2:45 PM EDT Dysuria Idiopathic gout of multiple sites Blood clotting disorder ([facility] V24) Chronic kidney disease (CKD) stage G3b/A1, moderately decreased glomerular filtration rate (GFR) between 30-44 mL/min/1.73 square meter and albuminuria creatinine ratio les* ([facility] V24, [facility] V28) URINALYSIS WITH REFLEX MICROSCOPIC Routine 05/20/2025 2:45 PM EDT Dysuria Idiopathic gout of multiple sites Blood clotting disorder ([facility] V24) Chronic kidney disease (CKD) stage G3b/A1, moderately decreased glomerular filtration rate (GFR) between 30-44 mL/min/1.73 square meter and albuminuria creatinine ratio les* ([facility] V24, 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 V24) Chronic kidney disease (CKD) stage G3b/A1, moderately decreased glomerular filtration rate (GFR) between 30-44 mL/min/1.73 square meter and albuminuria creatinine ratio les* ([facility] V24, [facility] V28) COMPREHENSIVE METABOLIC PANEL Routine 05/20/2025 2:45 PM EDT Dysuria Idiopathic gout of multiple sites Blood clotting disorder ([facility] V24) Chronic kidney disease (CKD) stage G3b/A1, moderately decreased glomerular filtration rate (GFR) between 30-44 mL/min/1.73 square meter and albuminuria creatinine ratio les* ([facility] V24, [facility] V28) URINALYSIS WITH REFLEX MICROSCOPIC Routine 05/20/2025 2:45 PM EDT Dysuria Idiopathic gout of multiple sites Blood clotting disorder ([facility] V24) Chronic kidney disease (CKD) stage G3b/A1, moderately decreased glomerular filtration rate (GFR) between 30-44 mL/min/1.73 square meter and albuminuria creatinine ratio les* ([facility] V24, [facility] V28) URIC ACID Routine 05/20/2025 2:45 PM EDT Dysuria Idiopathic gout of multiple sites Blood clotting disorder ([facility] V24) Chronic kidney disease (CKD) stage G3b/A1, moderately decreased glomerular filtration rate (GFR) between 30-44 mL/min/1.73 square meter and albuminuria creatinine ratio les* ([facility] V24, [facility] V28) HODGES URINE CULTURE TUBE Routine 05/20/2025 2:45 PM EDT Dysuria Idiopathic gout of multiple sites Blood clotting disorder ([facility] V24) Chronic kidney disease (CKD) stage G3b/A1, moderately decreased glomerular filtration rate (GFR) between 30-44 mL/min/1.73 square meter and albuminuria creatinine ratio les* ([facility] V24, [facility] V28) HEMOGLOBIN A1C Routine 04/06/2025 9:33 AM EDT Diabetes mellitus ([facility] V24, [facility] V28) Screening for thyroid disorder Paroxysmal atrial fibrillation ([facility] V24, [facility] V28) Hyperlipemia Vitamin B12 deficiency anemia Idiopathic gout of multiple sites Routine general medical examination at a health care facility LIPID PANEL WITH REFLEX TO DIRECT LDL Routine 04/06/2025 9:33 AM EDT Diabetes mellitus ([facility] V24, [facility] V28) Screening for thyroid disorder Paroxysmal atrial fibrillation ([facility] V24, [facility] V28) Hyperlipemia Vitamin B12 deficiency anemia Idiopathic gout of multiple sites Routine general medical examination at a [facility] DEXA AXIAL SKELETON Routine 12/11/2017 8:01 AM EDT Encounter for screening for osteoporosis from Last 3 Months or Most Recently Relevant to Health Maintenance Results * (ABNORMAL) Urinalysis with reflex microscopic (05/20/2025 2:45 PM EDT) Specific [place] Urine 1.012 1.003 - 1.030 LAB URINALYSIS - AUTOMATED METHOD 05/20/2025 6:38 PM EDT [facility] pH, Urine 7.0 5.0 - 8.0 pH LAB URINALYSIS - AUTOMATED METHOD 05/20/2025 6:38 PM T [facility] Leukocytes, Urine Negative Negative LAB URINALYSIS - AUTOMATED METHOD 05/20/2025 6:38 PM T [facility] Nitrite, Urine Negative Negative LAB URINALYSIS - AUTOMATED METHOD 05/20/2025 6:38 PM T [facility] Protein, Urine 300(A) <=Trace mg/dL LAB URINALYSIS - AUTOMATED METHOD 05/20/2025 6:38 PM [facility] Glucose, Urine Negative Negative mg/dL LAB URINALYSIS - AUTOMATED METHOD 05/20/2025 6:38 PM [facility] Ketones, Urine Negative Negative mg/dL LAB URINALYSIS - AUTOMATED METHOD 05/20/2025 6:38 PM [facility] Urobilinogen, Urine 1.0 0.2 - 1.0 mg/dL LAB URINALYSIS - AUTOMATED METHOD 05/20/2025 6:38 PM [facility] Bilirubin, Urine Negative Negative LAB URINALYSIS - AUTOMATED METHOD 05/20/2025 6:38 PM [facility] Blood, Urine Negative Negative LAB URINALYSIS - AUTOMATED METHOD 05/20/2025 6:38 PM [facility] RBC, Urine 6.1(H) 0 - 4 /HPF LAB URINALYSIS - AUTOMATED METHOD 05/20/2025 6:38 PM [facility] WBC, Urine 2.5 0 - 4 /HPF LAB URINALYSIS - AUTOMATED METHOD 05/20/2025 6:38 PM [facility] Squamous Epithelial, Urine 91(H) 0 - 60 /LPF LAB URINALYSIS - AUTOMATED METHOD 05/20/2025 6:38 PM [facility] Bacteria, Urine Negative Negative /HPF LAB URINALYSIS - AUTOMATED METHOD 05/20/2025 6:38 PM [facility] Hyaline Casts, Urine 0.4 0 - 3 /LPF LAB URINALYSIS - AUTOMATED METHOD 05/20/2025 6:38 PM [facility] Urine Urine specimen obtained by clean catch procedure / Unknown Non-blood Collection / Unknown 05/20/2025 2:45 PM EDT 05/20/2025 2:45 PM EDT Linda SYLVESTER LAB URINE ORDERABLES Final Resul t Performing Organization Address City/[facility]/ZIP Co de Phone Number [facility] [address] [place] [address], [place] [phone] * [facility] urine culture tube (05/20/2025 2:45 PM EDT) Pathologist [facility] Extra Tube Hold for add-ons. 05/20/2025 8:01 PM EDT [facility] Comment:Auto resulted. Urine Urine specimen obtained by clean catch procedure / Unknown Non-blood Collection / Unknown 05/20/2025 2:45 PM EDT 05/20/2025 2:45 PM EDT Linda SYLVESTER LAB URINE ORDERABLES Final Resul t Performing Organization Address [facility]/ZIP Co de Phone Number [facility] [address] [place] [address], [place] [phone] * (ABNORMAL) CBC auto differential (05/20/2025 2:45 PM EDT) [facility] WBC 4.4(L) 4.8 - 10.8 K/mcL LAB HEMETOLOGY METHOD 05/20/2025 6:44 PM EDT [facility] RBC 4.70 3.80 - 4.80 M/mcL LAB HEMETOLOGY METHOD 05/20/2025 6:44 PM EDT [facility] Hemoglobin 12.3 11.5 - 16.0 g/dL LAB HEMETOLOGY METHOD 05/20/2025 6:44 PM EDT [facility] Hematocrit 41.4 35.0 - 47.0 % LAB HEMETOLOGY METHOD 05/20/2025 6:44 PM EDT [facility] MCV 88.3 79.0 - 98.0 FL LAB HEMETOLOGY METHOD 05/20/2025 6:44 PM EDT [facility] MCH 26.2(L) 27.0 - 32.0 pcg LAB HEMETOLOGY METHOD 05/20/2025 6:44 PM EDT [facility] MCHC 29.7(L) 32.0 - 37.0 g/dL LAB HEMETOLOGY METHOD 05/20/2025 6:44 PM EDT [facility] RDW 13.7 11.0 - 15.0 % LAB HEMETOLOGY METHOD 05/20/2025 6:44 PM EDT [facility] Platelets 100(L) 130 - 400 K/mcL LAB HEMETOLOGY METHOD 05/20/2025 6:44 PM EDT [facility] MPV 11.8(H) 7.0 - 11.0 FL LAB HEMETOLOGY METHOD 05/20/2025 6:44 [facility] NRBC 0.0 <1.0 % LAB HEMETOLOGY METHOD 05/20/2025 6:44 PM EDT [facility] NRBC Absolute 0.00 <0.10 K/mcL LAB HEMETOLOGY METHOD 05/20/2025 6:44 PM [facility] Neutrophils Relative 61.0 % LAB HEMETOLOGY METHOD 05/20/2025 6:44 PM [facility] Lymphocytes Relative 19.5 % LAB HEMETOLOGY METHOD 05/20/2025 6:44 PM EDT [facility] Monocytes Relative 17.2 % LAB HEMETOLOGY METHOD 05/20/2025 6:44 PM [facility] Eosinophils Relative 0.9 % LAB HEMETOLOGY METHOD 05/20/2025 6:44 PM EDT [facility] Basophils Relative 0.9 % LAB HEMETOLOGY METHOD 05/20/2025 6:44 PM [facility] Immature Granulocytes Relative 0.5 % LAB HEMETOLOGY METHOD 05/20/2025 6:44 PM EDT [facility] Neutrophils Absolute 2.65 1.50 - 7.00 K/mcL LAB HEMETOLOGY METHOD 05/20/2025 6:44 PM EDT [facility] Lymphocytes Absolute 0.85(L) 1.00 - 5.00 K/mcL LAB HEMETOLOGY METHOD 05/20/2025 6:44 PM EDT [facility] Monocytes Absolute 0.75 0.20 - 1.00 K/mcL LAB HEMETOLOGY METHOD 05/20/2025 6:44 PM EDT [facility] Eosinophils Absolute 0.04 0.00 - 0.50 K/mcL LAB HEMETOLOGY METHOD 05/20/2025 6:44 PM EDT [facility] Basophils Absolute 0.04 0.00 - 0.20 K/mcL LAB HEMETOLOGY METHOD 05/20/2025 6:44 PM EDT [facility] Immature Granulocytes Absolute 0.02 0.00 - 0.03 K/mcL LAB HEMETOLOGY METHOD 05/20/2025 6:44 PM EDT [facility] Blood Venous blood specimen / Unknown Venipuncture / Unknown 05/20/2025 2:45 PM EDT 05/20/2025 2:45 PM EDT Linda SYLVESTER LAB BLOOD ORDERABLES Final Resul t [facility] [address] [place] [address], * (ABNORMAL) Prothrombin time with INR (05/20/2025 2:45 PM EDT) Protime 38.1(H) 10.6 - 13.9 sec LAB COAGULATION METHOD 05/20/2025 6:38 PM EDT [facility] INR 3.1 LAB COAGULATION METHOD 05/20/2025 6:38 PM EDT [facility] Blood Venous blood specimen / Unknown Venipuncture / Unknown 05/20/2025 2:45 PM EDT 05/20/2025 2:45 PM EDT Linda SYLVESTER LAB BLOOD ORDERABLES Final Resul t Performing Organization Address [facility]/ZIP Co de Phone Number [facility] [address] [place] [address], [place] [phone] * (ABNORMAL) Uric acid (05/20/2025 2:45 PM EDT) Uric Acid 10.5(H) 3.1 - 7.8 mg/dL LAB CHEMISTRY METHOD 05/20/2025 6:51 PM EDT [facility] Blood Venous blood specimen / Unknown Venipuncture / Unknown 05/20/2025 2:45 PM EDT 05/20/2025 2:45 PM EDT Linda SYLVESTER LAB BLOOD ORDERABLES Final Resul t Performing Organization Address [facility]/ZIP Co de Phone Number [facility] [address] [place] [address], [place] [phone] * (ABNORMAL) Comprehensive metabolic panel (05/20/2025 2:45 PM EDT) Pathologist [facility] Sodium 138 133 - 145 mmol/L LAB CHEMISTRY METHOD 05/20/2025 6:51 PM EDT [facility] Potassium 4.3 3.5 - 5.5 mmol/L LAB CHEMISTRY METHOD 05/20/2025 6:51 PM EDT [facility] Chloride 98 96 - 110 mmol/L LAB CHEMISTRY METHOD 05/20/2025 6:51 PM EDT [facility] CO2 32 21 - 32 mmol/L LAB CHEMISTRY METHOD 05/20/2025 6:51 PM EDT [facility] Anion Gap 8 3 - 11 LAB CHEMISTRY METHOD 05/20/2025 6:51 PM [facility] Glucose 69(L) 70 - 100 mg/dL LAB CHEMISTRY METHOD 05/20/2025 6:51 PM [facility] BUN 18 5 - 25 mg/dL LAB CHEMISTRY METHOD 05/20/2025 6:51 PM [facility] Creatinine 1.62(H) 0.50 - 1.10 mg/dL LAB CHEMISTRY METHOD 05/20/2025 6:51 PM [facility] eGFR 34(L) >=60 mL/min/1. 73m2 LAB CHEMISTRY METHOD 05/20/2025 6:51 PM [facility] Comment:Calculation based on the Chronic Kidney Disease Epidemiology Collaboration (CKD-EPI) equation refit without adjustment for race. BUN/Creatinine Ratio 11.1 LAB CHEMISTRY METHOD 05/20/2025 6:51 PM [facility] Calcium 9.1 8.5 - 10.5 mg/dL LAB CHEMISTRY METHOD 05/20/2025 6:51 PM [facility] AST (SGOT) 40 10 - 42 unit/L LAB CHEMISTRY METHOD 05/20/2025 6:51 PM [facility] ALT (SGPT) 21 10 - 60 unit/L LAB CHEMISTRY METHOD 05/20/2025 6:51 PM [facility] Alkaline Phosphatase 142(H) 42 - 121 unit/L LAB CHEMISTRY METHOD 05/20/2025 6:51 PM [facility] Total Protein 8.1(H) 6.0 - 8.0 g/dL LAB CHEMISTRY METHOD 05/20/2025 6:51 PM [facility] Albumin 3.8 3.2 - 5.0 g/dL LAB CHEMISTRY METHOD 05/20/2025 6:51 PM [facility] Total Bilirubin 1.8(H) 0.0 - 1.4 mg/dL LAB CHEMISTRY METHOD 05/20/2025 6:51 PM EDT [facility] Blood Venous blood specimen / Unknown Venipuncture / Unknown 05/20/2025 2:45 PM EDT 05/20/2025 2:45 PM EDT us Linda SYLVESTER LAB BLOOD ORDERABLES Final Resul t [facility] [address] [place] [address], * (ABNORMAL) Lipid panel with reflex to direct LDL (04/06/2025 9:33 AM EDT) Cholesterol 84 0 - 200 mg/dL LAB CHEMISTRY METHOD 04/06/2025 3:44 PM EDT [facility] Triglycerides 83 0 - 150 mg/dL LAB CHEMISTRY METHOD 04/06/2025 3:44 PM EDT [facility] HDL 38(L) >=40 mg/dL LAB CHEMISTRY METHOD 04/06/2025 3:44 PM EDT [facility] LDL Calculated 29 0 - 100 mg/dL LAB CHEMISTRY METHOD 04/06/2025 3:44 PM EDT [facility] Comment:Estimated LDL Calcul ated using equation: Total cholesterol - HDL cholesterol - (Triglycerides/5) VLDL Cholesterol Brien 16.6 mg/dL LAB CHEMISTRY METHOD 04/06/2025 3:44 PM EDT [facility] Non HDL Chol. (LDL+VLDL) 46 <145 mg/dL LAB CHEMISTRY METHOD 04/06/2025 3:44 PM EDT [facility] Chol/HDL Ratio 2.2 0.0 - 4.4 LAB CHEMISTRY METHOD 04/06/2025 3:44 PM T [facility] Blood Venous blood specimen / Unknown Venipuncture / Unknown 04/06/2025 9:33 AM EDT 04/06/2025 9:33 AM EDT Linda SYLVESTER LAB BLOOD ORDERABLES Final Resul t Performing Organization Address City/[facility]/ZIP Co de Phone Number [facility] [address] [place] [address], [place] [phone] * Hemoglobin A1c (04/06/2025 9:33 AM EDT) Hemoglobin A1C 6.1 <6.5 % LAB CHEMISTRY METHOD 04/06/2025 1:21 PM EDT [facility] Mean Bld Glu Estim. 128 mg/dL LAB CHEMISTRY METHOD 04/06/2025 1:21 PM EDT [facility] Blood Venous blood specimen / Unknown Venipuncture / Unknown 04/06/2025 9:33 AM EDT 04/06/2025 9:33 AM EDT Linda SYLVESTER LAB BLOOD ORDERABLES Final Resul t Performing Organization Address City/[facility]/ZIP Co de Phone Number [facility] [address] [place] [address], [place] [phone] * MARTIN DEXA AXIAL SKELETON (12/11/2017 8:01 AM EDT) Anatomical Region Laterality Modality Mammography 12/10/2017 1:03 PM EDT Narrative 12/11/2017 8:[address] [facility] Diagnostic Imaging Department [address] [place] [address] Patient: CHELA LAL/Age/Sex: 1950 - 67 - F Unit#: [id number] [facility] CLI Mnemonic/Ordering Site: MAMDEXAAX/SPMAM Ordering Physician: TERESA MARTIN MD [facility] Dexa Axial Skeleton - 12/10/17 - 1323 HISTORY: The patient is a 67-year-old postmenopausal female with clinical concern for metabolic bone disease. FINDINGS: Dual energy x-ray absorptiometry of the lumbar spine and femurs is performed. The mean bone mineral density at L1-3 is 1.009 gm/cm2 which is 86% of that of young normals and 84% of that of age matched controls. This yields a T- score of -1.3 and a Z-score of -1.6 which is diagnostic of osteopenia. The mean bone mineral density of the femurs bilaterally is 1.028 gm/cm2 which is 102% of that of young normals and 95% of that of age matched controls. This yields a T-score of 0.2 and a Z-score of -0.4 and there is therefore no evidence of osteoporosis or osteopenia here. IMPRESSION: 1. Osteopenia. 2. FRAX analysis yields a 10-year probability of major osteoporotic fracture of 2.9% and a 10-year probability of hip fracture of 0.1%. Code 74136 Dictating Physician: SARIAH LUNA MD Electronically Signed by: SARIAH LUNA MD Dic Date/Time: 12/10/17 1352 Sign date/Time: 12/11/17 0801 Procedure Note Sairah Luna MD - 07/18/2022 [facility] Diagnostic Imaging Department [address] [place] [id number] Patient: CHELA LAL.O.B./Age/Sex: 1950 - 67 - F Unit#: [id number] Location/Status: SPDIMAM/REG CLI [facility]em[facility] Ordering Physician: TERESA MARTIN MD [facility] Dexa Axial Skeleton - 12/10/17 - 1323 HISTORY: The patient is a 67-year-old postmenopausal female withclinical concern for metabolic bone disease. FINDINGS: Dual energy x-ray absorptiometry of the lumbar spine and femursis performed. The mean bone mineral density at L1-3 is 1.009 gm/cm2 which is86% of that of young normals and 84% of that of age matched controls. This yieldsa T- score of -1.3 and a Z-score of -1.6 which is diagnostic of osteopenia. The mean bone mineral density of the femurs bilaterally is 1.028 gm/fn7uwitd is 102% of that of young normals and 95% of that of age matched controls.This yields a T-score of 0.2 and a Z-score of -0.4 and there is therefore noevidence of osteoporosis or osteopenia here. IMPRESSION: 1. Osteopenia. 2. FRAX analysis yields a 10-year probability of major osteoporoticfracture of 2.9% and a 10-year probability of hip fracture of 0.1%. 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
== END 2025-07-24 15:26 | disposition home or self-care (01) ==
PROVIDERS: PCP Physician Assistant; Visit Provider Internal Medicine Nephrology
DX: I10 Essential (primary) hypertension (principal); N18.31 Chronic kidney disease, stage 3a
CPT/HCPCS: 99214

== ENCOUNTER → 2025-07-24 14:50 | Outpatient (BNVA) | payer MEDICARE, OTHER, SELFPAY | PROVIDERS: PCP Physician Assistant; Visit Provider Internal Medicine Nephrology | DX: N18.31 Chronic kidney disease, stage 3a (principal); I15.0 Renovascular hypertension | CPT/HCPCS: 99212 ==